=== PATIENT | male | born 1970 | race Caucasian/White ===

== ENCOUNTER 2020-09-05 04:42 | Observation (INO) | payer MEDICARE, OTHER ==
--- NOTE | 2020-09-05 05:13 | XR ---
EXAM: XR Chest, 1 View CLINICAL HISTORY: ITS.REASON XR Reason: dysrhythmia TECHNIQUE: Frontal view of the chest. COMPARISON: No relevant prior studies available. FINDINGS: Lungs: No consolidation or mass. Pleural space: No acute findings Heart: Mild cardiomegaly. Pacer device in place. Bones/joints: No acute findings. IMPRESSION: No acute cardiopulmonary process.
--- NOTE | 2020-09-05 05:17 | ED ---
Chest Pain HPI - General Stated Complaint: Cardiac issue Time Seen by Provider: 09/05/20 04:51 Source: patient Mode of arrival: EMS Limitations: no limitations - History of Present Illness Initial Comments: This patient is a 49-year-old man who presents with complaint that he believes his defibrillator has discharged twice tonight. He states that about 1 AM he was awakened from sleep by sharp pain that lasted just a second. He thought that his defibrillator may have fired. He was not having any other symptoms so he tried to go back to sleep. Patient was again awakened with that sensation a little after 4 AM. The patient denies other symptoms. He is not having any chest pain currently. No palpitations, dyspnea, diaphoresis, nausea or vomiting. MD Complaint: chest pain Onset/Timin -: hour(s) Onset: during rest, awoke with symptoms Pain Location: substernal Pain Radiation: none Severity: moderate Quality: sharp Consistency: now resolved Improves With: nothing Worsens With: nothing Treatments Prior to Arrival: none - Related Data Home Medications Medication Instructions Recorded Confirmed Aspirin EC [Ecotrin Low Dose] 81 mg PO DAILY 09/05/20 09/05/20 Atorvastatin [Lipitor] 40 mg PO DAILY 09/05/20 09/05/20 Carvedilol [Coreg] 12.5 mg PO BID 09/05/20 09/05/20 Folic Acid-Vit B Complex-Vit C 1 mg PO DAILY 09/05/20 09/05/20 [Nephrocaps] Furosemide [Lasix] 40 mg PO DAILY PRN 09/05/20 09/05/20 Losartan Potassium 50 mg PO DAILY 09/05/20 09/05/20 Magnesium Chloride [Slow Mag] 128 mg PO BID 09/05/20 09/05/20 Melatonin 3 mg PO HS 09/05/20 09/05/20 Mycophenolate Sodium [Mycophenolic 720 mg PO BID 09/05/20 09/05/20 Acid] Sirolimus [Rapamune] 1 mg PO DAILY 09/05/20 09/05/20 Sirolimus [Rapamune] 1.5 mg PO DAILY 09/05/20 09/05/20 Warfarin [Coumadin] 5 mg PO SUMOTUWETHSA 09/05/20 09/05/20 Warfarin [Coumadin] 7.5 mg PO FR 09/05/20 09/05/20 amLODIPine [Norvasc] 5 mg PO DAILY 09/05/20 09/05/20 oxyCODONE HCL [OxyIR] 5 mg PO Q6H PRN 09/05/20 09/05/20 valACYclovir HCL [Valtrex] 1,000 mg PO DAILY 09/05/20 09/05/20 Allergies Allergy/AdvReac Type Severity Reaction Status Date / Time bee venom protein (honey bee) Allergy Swelling Verified 09/05/20 06:33 cephalexin [From Keflex] Allergy Unknown Verified 09/05/20 06:33 Childhood lisinopril Allergy Swelling Verified 09/05/20 06:33 tacrolimus [From Prograf] Allergy Unknown Verified 09/05/20 06:33 Review of Systems ROS Statement: Those systems with pertinent positive or pertinent negative responses have been documented in the HPI. ROS Other: All systems not noted in ROS Statement are negative. Constitutional: Denies: fever, chills Respiratory: Denies: cough, dyspnea Cardiovascular: Reports: as per HPI, chest pain. Denies: palpitations, orthopnea, edema, syncope Gastrointestinal: Denies: abdominal pain, nausea, vomiting, diarrhea, constipation Genitourinary: Denies: dysuria, hematuria Musculoskeletal: Denies: back pain Skin: Denies: rash Neurological: Denies: headache, weakness, numbness EKG Findings - EKG Comments: EKG Findings:: 12-lead ECG shows what appears to be an atrial sensed ventricular paced rhythm. There are PVCs present. - EKG Results: EKG: interpreted by ERMD, normal axis General Exam General appearance: alert, in no apparent distress Head exam: Present: atraumatic, normocephalic Eye exam: Present: normal appearance. Absent: scleral icterus, conjunctival injection ENT exam: Present: normal oropharynx Neck exam: Present: normal inspection, full ROM Respiratory exam: Present: normal lung sounds bilaterally. Absent: respiratory distress, wheezes, rales, rhonchi, stridor Cardiovascular Exam: Present: regular rate, normal rhythm, normal heart sounds. Absent: systolic murmur, diastolic murmur, rubs GI/Abdominal exam: Present: soft. Absent: distended, tenderness, guarding, rebound, rigid, mass Extremities exam: Present: normal inspection, normal capillary refill. Absent: pedal edema, calf tenderness Back exam: Present: normal inspection. Absent: CVA tenderness (R), CVA tenderness (L) Neurological exam: Present: alert Skin exam: Present: warm, dry, intact, normal color. Absent: rash Course Vital Signs 09/05/20 09/05/20 04:51 06:12 Temperature 98 F Pulse Rate 73 69 Respiratory 16 16 Rate Blood Pressure 140/107 131/104 O2 Sat by Pulse 99 98 Oximetry Chest Pain MDM - MDM Pacer interrogation reveals that the patient did have 2 episodes of ventricular tachycardia, resulting in defibrillation. As these occurred during sleep, there may be possible element of sleep apnea. Patient admitted to have cardiology consultation. Disposition Clinical Impression: Defibrillator discharge Disposition: ADMITTED IP TO THIS HOSP Condition: Fair
[2020-09-05 05:22] LABS: Anisocytosis Slight; Basophils # (A) 0.1 k/uL (0-0.2); Basophils % (A) 1 %; Eosinophils # (A) 0.1 k/uL (0-0.7); Eosinophils % (A) 2 %; HCT 37.1 % (39.0-53.0); HGB 12.6 gm/dL (13.0-17.5); Lymphocytes # (A) 0.8 k/uL (1.0-4.8); Lymphocytes % (A) 16 %; MCH 28.8 pg (25.0-35.0); MCV 84.6 fL (80.0-100.0); Mean Platelet Volume 7.3; Monocytes # (A) 0.2 k/uL (0-1.0); Monocytes % (A) 4 %; Neutrophils # (A) 3.9 k/uL (1.3-7.7); Neutrophils % (A) 76 %; Platelet Count 189 k/uL (150-450); RBC 4.38 m/uL (4.30-5.90); RDW 16.2 % (11.5-15.5); WBC 5.1 k/uL (3.8-10.6)
[2020-09-05 05:30] LABS: INR 2.3 (<1.2); Partial Thromboplastin Time 29.1 sec (22.0-30.0); Prothrombin Time 22.8 sec (9.0-12.0)
[2020-09-05 05:40] LABS: African American GFR (CKD) 71 (>60 ml/min/1.73 sqM); Albumin 3.1 g/dL (3.5-5.0); Anion Gap 3 mmol/L; Calcium 8.1 mg/dL (8.4-10.2); Carbon Dioxide 23 mmol/L (22-30); Chloride 111 mmol/L (98-107); Glucose 109 mg/dL (74-99); Non-African American GFR(CKD) 62 (>60 ml/min/1.73 sqM); Sodium 137 mmol/L (137-145); Total Bilirubin 0.8 mg/dL (0.2-1.3); Total Protein 5.5 g/dL (6.3-8.2)
[2020-09-05 05:42] LABS: ALT 14 U/L (4-49); AST 23 U/L (17-59); Alkaline Phosphatase <20 U/L (38-126); Blood Urea Nitrogen 12 mg/dL (9-20); Magnesium 2.1 mg/dL (1.6-2.3); Potassium 4.2 mmol/L (3.5-5.1)
[2020-09-05] MEDS ORDERED: NITROGLYCERIN SL TABS 0.4 MG TAB SUBLINGUAL PRN (06:16)
[2020-09-05] MEDS ORDERED: carvediloL 12.5 MG TAB PO SCH (09:00)
[2020-09-05] MEDS: carvediloL 12.5 MG TAB PO SCH ×2 (09:29→20:37)
[2020-09-05] MEDS: LOSARTAN 50 MG TAB PO SCH (09:30)
[2020-09-05] MEDS ORDERED: FUROSEMIDE 40 MG TAB PO PRN (10:37)
--- NOTE | 2020-09-05 11:24 | P.CRDCN ---
History of Present Illness History of present illness: HISTORY OF PRESENTING ILLNESS This is a pleasant 49-year-old male past medical history significant for chronic kidney disease s/p renal transplant 2010, hypertension, non-ischemic dilated cardiomyopathy s/p AICD, LV thrombus on warfarin, history of ventricular fibrillation in the past, DVT, right ZIGZAG APPLIQUER ischemic stroke and dyslipidemia. He follows in the office with Dr. Zepeda in [place] and Dr. Davenport in [place] for advanced heart failure treatment. We have been asked to see in consultation for AICD discharge. He is seen and examined resting comfortably on the bed in no acu te distress. He states just last week he had an upgrade of his ICD with Dr. Beard in [place]. Last night he was sleeping and was awoken by his device firing. It occurred again shortly after approximately 20 minutes. He denies feeling any chest pains, shortness of breath, dizziness or palpitations ye sterday throughout the day or this morning. He underwent catheterization and echocardiogram 06/2020. Cath report reviewed revealing normal coronary arteries with EF 10-15%. Device interrogation report not here however [facility] did call and notify the nurse that he received 2 shocks last night secondary to VT. The patient was also called this morning by his device clinic. DIAGNOSTICS EKG reveals atrial sensed paced rhythm with PVC's. Telemetry tracings indicate frequent PVC's and couplets. Chest xray negative for an acute cardiopulmonary process. Laboratory reviewed, WBC 5.1, hemoglobin 12.6, platelets 189, INR 2.3, sodium 137, potassium 4.2, creatinine 1.36, magnesium 2.1, troponin 0.030. Current cardiac medications include aspirin 81 mg daily, atorvastatin 40 mg daily, carvedilol 12.5 mg twice a day, Lasix 40 mg daily as needed for lower extremity edema, losartan 50 mg daily, amlodipine 5 mg daily and Coumadin. REVIEW OF SYSTEMS At the time of my exam: CONSTITUTIONAL: Denies fever or chills. CARDIOVASCULAR: Denies chest pain, shortness of breath, orthopnea, PND or palpi tations. RESPIRATORY: Denies cough. GASTROINTESTINAL: Denies abdominal pain, diarrhea, constipation, nausea or vomiting. MUSCULOSKELETAL: Denies myalgias. NEUROLOGIC: Denies numbness, tingling, headacbe or weakness. ENDOCRINE: Denies fatigue, weight change, polydipsia or polyurina. GENITOURINARY: Denies burning, hematuria or urgency with micturation. HEMATOLOGIC: Denies history of anemia or bleeding. PHYSICAL EXAMINATION Blood pressure 142/101 heart rate 68 afebrile and maintaining oxygen saturation on room air. CONSTITUTIONAL: No apparent distress. HEENT: Head is normocephalic. Pupils are equal, round. Sclerae anicteric. Mucous membranes of the mouth are moist. No JVD. No carotid bruit. CHEST EXAMINATION: Lungs are clear to auscultation. No chest wall tenderness is noted on palpation or with deep breathing. ICD insertion site with dressings in place, no drainage noted. HEART EXAMINATION: Regular rate and rhythm. S1, S2 heard. No murmurs, gallops or rub. ABDOMEN: Soft, nontender. Positive bowel sounds. EXTREMITIES: 2+ peripheral pulses, right lower extremity 1+ pitting edema, no swelling on the left and no calf tenderness. NEUROLOGIC EXAMINATION: Patient is awake, alert and oriented x3. ASSESSMENT AICD discharge Dilated non-ischemic cardiomyopathy s/p AICD Chronic kidney disease s/p transplantation Hypertension Dyslipidemia PLAN Increase coreg to 25 mg BID. Request records from his primary java manager for review. Check TSH. Await report from [facility] for review of telemetry tracings surrounding the event. Further recommendations to follow based on clinical course. Thank you kindly for this consultation. Nurse Practitioner note has been reviewed, I agree with a documented findings and plan of care. Patient was seen and examined. Past Medical History Past Medical History: CVA/TIA, Hypertension, Renal Disease History of Any Multi-Drug Resistant Organisms: None Reported Past Surgical History: AICD Additional Past Surgical History / Comment(s): renal transplant Smoking Status: Unknown if ever smoked Past Alcohol Use History: None Reported Medications and Allergies Home Medications Medication Instructions Recorded Confirmed Type Aspirin EC [Ecotrin Low Dose] 81 mg PO DAILY 09/05/20 09/05/20 History Atorvastatin [Lipitor] 40 mg PO DAILY 09/05/20 09/05/20 History Carvedilol [Coreg] 12.5 mg PO BID 09/05/20 09/05/20 History Folic Acid-Vit B Complex-Vit C 1 mg PO DAILY 09/05/20 09/05/20 History [Nephrocaps] Furosemide [Lasix] 40 mg PO DAILY PRN 09/05/20 09/05/20 History Losartan Potassium 50 mg PO DAILY 09/05/20 09/05/20 History Magnesium Chloride [Slow Mag] 128 mg PO BID 09/05/20 09/05/20 History Melatonin 3 mg PO HS 09/05/20 09/05/20 History Mycophenolate Sodium [Mycophenolic 720 mg PO BID 09/05/20 09/05/20 History Acid] Sirolimus [Rapamune] 1 mg PO DAILY 09/05/20 09/05/20 History Sirolimus [Rapamune] 1.5 mg PO DAILY 09/05/20 09/05/20 History Warfarin [Coumadin] 5 mg PO SUMOTUWETHSA 09/05/20 09/05/20 History Warfarin [Coumadin] 7.5 mg PO FR 09/05/20 09/05/20 History amLODIPine [Norvasc] 5 mg PO DAILY 09/05/20 09/05/20 History oxyCODONE HCL [OxyIR] 5 mg PO Q6H PRN 09/05/20 09/05/20 History valACYclovir HCL [Valtrex] 1,000 mg PO DAILY 09/05/20 09/05/20 History Allergies Allergy/AdvReac Type Severity Reaction Status Date / Time bee venom protein (honey bee) Allergy Swelling Verified 09/05/20 06:33 cephalexin [From Keflex] Allergy Unknown Verified 09/05/20 06:33 Childhood lisinopril Allergy Swelling Verified 09/05/20 06:33 tacrolimus [From Prograf] Allergy Unknown Verified 09/05/20 06:33 Physical Exam Vitals: Vital Signs Temp Pulse Resp BP Pulse Ox 09/05/20 08:02 67 18 135/98 97 09/05/20 06:12 69 16 131/104 98 09/05/20 04:51 98 F 73 16 140/107 99 Intake and Output 09/04/20 09/05/20 09/05/20 22:59 06:59 14:59 Other: Weight 79.379 kg Results 09/05/20 05:17 09/05/20 05:17 Cardiac Enzymes 09/05/20 09/05/20 Range/Units 05:17 05:17 AST 23 (17-59) U/L Troponin I 0.030 (0.000-0.034) ng/mL Coagulation 09/05/20 Range/Units 05:17 PT 22.8 H (9.0-12.0) sec APTT 29.1 (22.0-30.0) sec CBC 09/05/20 Range/Units 05:17 WBC 5.1 (3.8-10.6) k/uL RBC 4.38 (4.30-5.90) m/uL Hgb 12.6 L (13.0-17.5) gm/dL Hct 37.1 L (39.0-53.0) % Plt Count 189 (150-450) k/uL Comprehensive Metabolic Panel 09/05/20 Range/Units 05:17 Sodium 137 (137-145) mmol/L Potassium 4.2 (3.5-5.1) mmol/L Chloride 111 H (98-107) mmol/L Carbon Dioxide 23 (22-30) mmol/L BUN 12 (9-20) mg/dL Creatinine 1.36 H (0.66-1.25) mg/dL Glucose 109 H (74-99) mg/dL Calcium 8.1 L (8.4-10.2) mg/dL AST 23 (17-59) U/L ALT 14 (4-49) U/L Alkaline Phosphatase <20 L (38-126) U/L Total Protein 5.5 L (6.3-8.2) g/dL Albumin 3.1 L (3.5-5.0) g/dL Current Medications Generic Name Dose Route Start Last Admin Trade Name Freq PRN Reason Stop Dose Admin Aspirin 325 mg 09/06/20 09:00 Aspirin 325 Mg Tab PO DAILY EDWARD Nitroglycerin 0.4 mg 09/05/20 06:16 Nitroglycerin Sl Tabs 0.4 Mg Tab SUBLINGUAL Q5M PRN Chest Pain Sodium Chloride 10 ml 09/05/20 09:00 Sodium Chloride 0.9% Flush 10 Ml Syringe IV BID EDWARD Intake and Output 09/04/20 09/05/20 09/05/20 22:59 06:59 14:59 Other: Weight 79.379 kg 09/05/20 05:17 09/05/20 05:17
--- NOTE | 2020-09-05 14:36 | P.HPIM ---
History of Present Illness 49-year-old male came in because of his firing of AICD. Patient had history of atrial fibrillation. Patient was evaluated by cardiology but that when I valid the patient patient was a bit belligerent and the wanted to be transferred to [place] to his doctor although patient will not require higher level of care same thing was informed to the patient. Patient does have history of recurring transplant and is on immunosuppressive therapy for that tacrolimus can cause hypomagnesemia because of which I'll obtain a magnesium level. 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 Review of Systems Rest of the review of systems is negative except those mentioned in HPI Past Medical History Past Medical History: CVA/TIA, Hypertension, Renal Disease History of Any Multi-Drug Resistant Organisms: None Reported Past Surgical History: AICD Additional Past Surgical History / Comment(s): renal transplant Smoking Status: Unknown if ever smoked Past Alcohol Use History: None Reported Medications and Allergies Home Medications Medication Instructions Recorded Confirmed Type Aspirin EC [Ecotrin Low Dose] 81 mg PO DAILY 09/05/20 09/05/20 History Atorvastatin [Lipitor] 40 mg PO DAILY 09/05/20 09/05/20 History Carvedilol [Coreg] 12.5 mg PO BID 09/05/20 09/05/20 History Folic Acid-Vit B Complex-Vit C 1 mg PO DAILY 09/05/20 09/05/20 History [Nephrocaps] Furosemide [Lasix] 40 mg PO DAILY PRN 09/05/20 09/05/20 History Losartan Potassium 50 mg PO DAILY 09/05/20 09/05/20 History Magnesium Chloride [Slow Mag] 128 mg PO BID 09/05/20 09/05/20 History Melatonin 3 mg PO HS 09/05/20 09/05/20 History Mycophenolate Sodium [Mycophenolic 720 mg PO BID 09/05/20 09/05/20 History Acid] Sirolimus [Rapamune] 1 mg PO DAILY 09/05/20 09/05/20 History Sirolimus [Rapamune] 1.5 mg PO DAILY 09/05/20 09/05/20 History Warfarin [Coumadin] 5 mg PO SUMOTUWETHSA 09/05/20 09/05/20 History Warfarin [Coumadin] 7.5 mg PO FR 09/05/20 09/05/20 History amLODIPine [Norvasc] 5 mg PO DAILY 09/05/20 09/05/20 History oxyCODONE HCL [OxyIR] 5 mg PO Q6H PRN 09/05/20 09/05/20 History valACYclovir HCL [Valtrex] 1,000 mg PO DAILY 09/05/20 09/05/20 History Allergies Allergy/AdvReac Type Severity Reaction Status Date / Time bee venom protein (honey bee) Allergy Swelling Verified 09/05/20 06:33 cephalexin [From Keflex] Allergy Unknown Verified 09/05/20 06:33 Childhood lisinopril Allergy Swelling Verified 09/05/20 06:33 tacrolimus [From Prograf] Allergy Unknown Verified 09/05/20 06:33 Physical Exam Vitals: Vital Signs Temp Pulse Pulse Resp BP BP Pulse Ox 09/05/20 09:00 97.9 F 68 18 142/101 97 09/05/20 08:02 67 18 135/98 97 09/05/20 06:12 69 16 131/104 98 09/05/20 04:51 98 F 73 16 140/107 99 Intake and Output 09/04/20 09/05/20 09/05/20 22:59 06:59 14:59 Intake Total 240 Balance 240 Intake: Oral 240 Other: Weight 79.379 kg Patient was belligerent and non cooperative for exam. Results CBC & Chem 7: 09/05/20 05:17 09/05/20 05:17 Labs: Abnormal Lab Results - Last 24 Hours (Table) 09/05/20 09/05/20 09/05/20 Range/Units 05:17 05:17 05:17 Hgb 12.6 L (13.0-17.5) gm/dL Hct 37.1 L (39.0-53.0) % RDW 16.2 H (11.5-15.5) % Lymphocytes # 0.8 L (1.0-4.8) k/uL PT 22.8 H (9.0-12.0) sec INR 2.3 H (<1.2) Chloride 111 H (98-107) mmol/L Creatinine 1.36 H (0.66-1.25) mg/dL Glucose 109 H (74-99) mg/dL Calcium 8.1 L (8.4-10.2) mg/dL Alkaline Phosphatase <20 L (38-126) U/L Total Protein 5.5 L (6.3-8.2) g/dL Albumin 3.1 L (3.5-5.0) g/dL Assessment and Plan Plan: -Discharge from AICD possibility of an episode of atrial fibrillation: Patient will be started on amiodarone device will be interrogated. Considering the patient being on tach.Magnesium level will be obtained. Coreg dose is being increased to 12.5 twice a day. Continue with anticoagulation with Coumadin INR is therapeutic TSH is being obtained -Dilated nonischemic cardiomyopathy with EF of around 10-15% patient will be resumed on home regimen of the Lasix which is as needed and losartan. --Hypertension -Hyperlipidemia -Status post renal transplant: Patient will be started back on immunosuppressive therapy. Patient is also on prophylactic antivirals which will be continued. Patient was and creatinine is 1.36 I do not have his baseline creatinine available. -History of LV thrombus for which patient is on Coumadin which will be continued
[2020-09-05] MEDS: AMIODARONE 200 MG TAB PO SCH ×2 (14:56→20:37)
[2020-09-05] MEDS: ATORVASTATIN 40 MG TAB PO SCH (14:56)
[2020-09-05] MEDS ORDERED: WARFARIN 7.5 MG TAB PO SCH (18:00)
[2020-09-05] MEDS: valACYclovir HCL 1,000 MG TABLET PO SCH (18:22)
[2020-09-05] MEDS: SIROLIMUS 0.5 MG PO SCH (18:23)
[2020-09-05] MEDS: MYCOPHENOLATE SODIUM DR 180 MG TABLET.DR PO SCH (20:37)
[2020-09-05] MEDS: MAGNESIUM OXIDE 400 MG TAB PO SCH (20:37)
[2020-09-05] MEDS ORDERED: MELATONIN 3 MG TABLET PO SCH (21:00)
[2020-09-06 07:52] LABS: INR 2.6 (<1.2); Prothrombin Time 25.1 sec (9.0-12.0)
[2020-09-06] MEDS: AMIODARONE 200 MG TAB PO SCH (08:12)
[2020-09-06] MEDS: MAGNESIUM OXIDE 400 MG TAB PO SCH (08:12)
[2020-09-06] MEDS: LOSARTAN 50 MG TAB PO SCH (08:12)
[2020-09-06] MEDS: carvediloL 12.5 MG TAB PO SCH (08:12)
[2020-09-06] MEDS: ATORVASTATIN 40 MG TAB PO SCH (08:12)
[2020-09-06] MEDS: MYCOPHENOLATE SODIUM DR 180 MG TABLET.DR PO SCH (08:13)
[2020-09-06] MEDS: valACYclovir HCL 1,000 MG TABLET PO SCH (08:14)
[2020-09-06] MEDS: SIROLIMUS 0.5 MG PO SCH (08:15)
[2020-09-06 08:49] LABS: Calcium 8.7 mg/dL (8.4-10.2); Potassium 4.4 mmol/L (3.5-5.1)
[2020-09-06] MEDS ORDERED: SIROLIMUS 1 MG PO SCH (09:00)
[2020-09-06] MEDS ORDERED: ASPIRIN 325 MG TAB PO SCH (09:00)
[2020-09-06] MEDS ORDERED: ASPIRIN 81 MG PO SCH (09:00)
[2020-09-06] MEDS ORDERED: amLODIPine 5 MG TAB PO SCH (09:00)
[2020-09-06 09:11] VITALS: RESP 20
--- NOTE | 2020-09-06 09:59 | P.DS ---
Providers Date of admission: 09/05/20 06:20 Attending physician: Tasha Cobos Consults: 09/05/20 06:16 Consult Physician Routine Consulting Provider: Emanuel Bueno Consult Reason/Comments: AICD discharged Do you want consulting provider notified?: Yes Primary care physician: Physician Nonstaff Hospital Course: 49-year-old male came in because of his firing of AICD. Patient had history of atrial fibrillation. Patient was evaluated by cardiology but that when I valid the patient patient was a bit belligerent and the wanted to be transferred to [place] to his doctor although patient will not require higher level of care same thing was informed to the patient. Patient does have history of recurring transplant and is on immunosuppressive therapy for that tacrolimus can cause hypomagnesemia because of which I'll obtain a magnesium level. 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 09/06/2020 Patient the device wasn't targeted please refer to cardiology documentation for further details. The patient has mildly elevated creatinine probably because of hypotension amlodipine will be discontinued patient is a beta ronni dose was increased by cardiology. Patient was started on amiodarone, amiodarone doesn't tract with Coumadin because of which I'm cutting down the Coumadin to 5 mg daily. Patient usually takes Coumadin 5 mg daily along with some 0.5 mg 1 daily week. Patient need close follow-up as an outpatient to check the basic metabolic profile and INR patient has a follow-up on Tuesday with the his physicians. Cardiology advised him to have a sleep study as an outpatient PHYSICAL EXAMINATION: GENERAL: The patient is alert and oriented x3, not in any acute distress. Well developed, well nourished. HEENT: Pupils are round and equally reacting to light. EOMI. No scleral icterus. No conjunctival pallor. Normocephalic, atraumatic. No pharyngeal erythema. No thyromegaly. CARDIOVASCULAR: S1 and S2 present. No murmurs, rubs, or gallops. PULMONARY: Chest is clear to auscultation, no wheezing or crackles. ABDOMEN: Soft, nontender, nondistended, normoactive bowel sounds. No palpable organomegaly. MUSCULOSKELETAL: No joint swelling or deformity. EXTREMITIES: No cyanosis, clubbing, or pedal edema. Leg is swollen which is chronic probably secondary to lymphedema NEUROLOGICAL: Gross neurological examination did not reveal any focal deficits. SKIN: No rashes. Assessment and Plan Plan: -Discharge from [facility] possibility of an episode of atrial fibrillation: Patient will be started on amiodarone device wasn't rotated -Dilated nonischemic cardiomyopathy with EF of around 10-15% patient will be resumed on home regimen of the Lasix which is as needed and losartan. --Hypertension -Hyperlipidemia -Status post renal transplant: Patient will be started back on immunosuppressive therapy. Patient is also on prophylactic antivirals which will be continued. Patient was and creatinine is 1.36 I do not have his baseline creatinine available. -History of LV thrombus for which patient is on Coumadin which will be continued Patient Condition at Discharge: Fair Plan - Discharge Summary Discharge Rx Participant: Yes New Discharge Prescriptions: New carvediloL [Coreg*] 25 mg PO BID #60 tab Continue Magnesium Chloride [Slow-Mag] 128 mg PO BID Aspirin EC [Ecotrin Low Dose] 81 mg PO DAILY Mycophenolate Sodium [Mycophenolic Acid] 720 mg PO BID Melatonin 3 mg PO HS Folic Acid-Vit B Complex-Vit C [Nephrocaps] 1 mg PO DAILY Sirolimus [Rapamune] 1.5 mg PO DAILY Sirolimus [Rapamune] 1 mg PO DAILY valACYclovir HCL [Valtrex] 1,000 mg PO DAILY oxyCODONE HCL [OxyIR] 5 mg PO Q6H PRN PRN Reason: Pain Losartan Potassium 50 mg PO DAILY Furosemide [Lasix] 40 mg PO DAILY PRN PRN Reason: Edema Atorvastatin [Lipitor] 40 mg PO DAILY Changed Warfarin [Coumadin] 5 mg PO DAILY #0 Discontinued Warfarin [Coumadin] 7.5 mg PO FR amLODIPine [Norvasc] 5 mg PO DAILY Carvedilol [Coreg] 12.5 mg PO BID Discharge Medication List Aspirin EC [Ecotrin Low Dose] 81 mg PO DAILY 09/05/20 [History] Atorvastatin [Lipitor] 40 mg PO DAILY 09/05/20 [History] Folic Acid-Vit B Complex-Vit C [Nephrocaps] 1 mg PO DAILY 09/05/20 [History] Furosemide [Lasix] 40 mg PO DAILY PRN 09/05/20 [History] Losartan Potassium 50 mg PO DAILY 09/05/20 [History] Magnesium Chloride [Slow-Mag] 128 mg PO BID 09/05/20 [History] Melatonin 3 mg PO HS 09/05/20 [History] Mycophenolate Sodium [Mycophenolic Acid] 720 mg PO BID 09/05/20 [History] Sirolimus [Rapamune] 1 mg PO DAILY 09/05/20 [History] Sirolimus [Rapamune] 1.5 mg PO DAILY 09/05/20 [History] oxyCODONE HCL [OxyIR] 5 mg PO Q6H PRN 09/05/20 [History] valACYclovir HCL [Valtrex] 1,000 mg PO DAILY 09/05/20 [History] Warfarin [Coumadin] 5 mg PO DAILY #0 09/06/20 [Rx] carvediloL [Coreg*] 25 mg PO BID #60 tab 09/06/20 [Rx] Follow up Appointment(s)/Referral(s): Nonstaff,Physician [Primary Care Provider] - 1-2 days
[2020-09-06 11:46] VITALS: BP 132/83; PULSE 60; TEMP 97.5
--- NOTE | 2020-09-06 14:00 | P.PN ---
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 He follows in the office with Dr. Zepeda in [place] and Dr. Davenport in [place] for advanced heart failure treatment. We have been asked to see in consultation for AICD discharge. He is seen and examined resting comfortably on the bed in no acute distress. He states just last week he had an upgrade of his ICD with Dr. Beard in [place]. Last night he was sleeping and was awoken by his device firing. It occurred again shortly after approximately 20 minutes. He denies feeling any chest pains, shortness of breath, dizziness or palpitations yesterday throughout the day or this morning. He underwent catheterization and echocardiogram 06/2020. Cath report reviewed revealing normal coronary arteries with EF 10-15%. Device interrogation report not here however [employer] did call and notify the nurse that he received 2 shocks last night secondary to VT. The patient was also called this morning by his device clinic. 09/06/2019 [employer] device interrogation revealed he had 4 episodes of ventricular tachycardia to requiring therapy. 2 auto corrected. He has been initiated on amiodarone. He had one short run of ventricular tachycardia on the previous 12 hours of 7 beats. He has no symptoms of chest pain, shortness of breath, dizziness or palpitations. Blood pressure 132/83 heart rate 60 afebrile maintaining oxygen saturation on room air. Laboratory data reviewed, INR 2.6, sodium 138, potassium 4.4, creatinine 1.63. PHYSICAL EXAMINATION CONSTITUTIONAL: No apparent distress. HEENT: Head is normocephalic. Pupils are equal, round. Sclerae anicteric. Mucous membranes of the mouth are moist. No JVD. No carotid bruit. CHEST EXAMINATION: Lungs are clear to auscultation. No chest wall tenderness is noted on palpation or with deep breathing. ICD insertion site with dressings in place, no drainage noted. HEART EXAMINATION: Regular rate and rhythm. S1, S2 heard. No murmurs, gallops or rub. EXTREMITIES: 2+ peripheral pulses, right lower extremity 1+ pitting edema, no swelling on the left and no calf tenderness. ASSESSMENT AICD discharge Dilated non-ischemic cardiomyopathy s/p AICD Chronic kidney disease s/p transplantation Hypertension Dyslipidemia PLAN Stable on current medical regimen. Discussed with the patient amiodarone titration. He is scheduled to see his primary fish fryer in the office next week. Nurse Practitioner note has been reviewed, I agree with a documented findings and plan of care. Patient was seen and examined. Objective - Vital Signs Vital signs: Vital Signs Temp 97.5 F L 09/06/20 11:46 Pulse 60 09/06/20 11:46 Resp 20 09/06/20 11:46 BP 132/83 09/06/20 11:46 Pulse Ox 97 09/06/20 11:46 Intake & Output 09/05/20 09/06/20 09/06/20 18:59 06:59 18:59 Intake Total 480 240 Output Total 750 Balance -270 240 Weight 79.379 kg 96.3 kg Intake: Oral 480 240 Output: Urine 750 Other: Voiding Method Urinal Urinal # Voids 1 2 - Labs CBC & Chem 7: 09/05/20 05:17 09/06/20 07:08 Labs: Abnormal Lab Results - Last 24 Hours (Table) 09/06/20 09/06/20 Range/Units 07:08 07:08 PT 25.1 H (9.0-12.0) sec INR 2.6 H (<1.2) Chloride 111 H (98-107) mmol/L Carbon Dioxide 21 L (22-30) mmol/L Creatinine 1.63 H (0.66-1.25) mg/dL Glucose 120 H (74-99) mg/dL
[2020-09-06] MEDS ORDERED: WARFARIN 5 MG TAB PO SCH (18:00)
== END 2020-09-06 12:26 | disposition home or self-care (01) ==
LOC: EC 04:42 → 1SOBS 06:20 → 3SCARD 13:45
PROVIDERS: ADMIT Internal Medicine; ATTEND Internal Medicine
DX: I47.2 Ventricular tachycardia (principal); I49.3 Ventricular premature depolarization; Z95.810 Presence of automatic (implantable) cardiac defibrillator; I42.0 Dilated cardiomyopathy; I42.8 Other cardiomyopathies; I48.91 Unspecified atrial fibrillation; I13.0 Hypertensive heart and chronic kidney disease with heart failure and stage 1 through stage 4 chronic kidney disease, or unspecified chronic kidney disease; N18.9 Chronic kidney disease, unspecified; I50.9 Heart failure, unspecified; Z94.0 Kidney transplant status; E78.5 Hyperlipidemia, unspecified; Z86.73 Personal history of transient ischemic attack (TIA), and cerebral infarction without residual deficits; I10 Essential (primary) hypertension; Z86.718 Personal history of other venous thrombosis and embolism; Z79.82 Long term (current) use of aspirin; Z79.01 Long term (current) use of anticoagulants; Z79.899 Other long term (current) drug therapy; Z88.8 Allergy status to other drugs, medicaments and biological substances; Z88.1 Allergy status to other antibiotic agents; Z91.030 Bee allergy status
CPT/HCPCS: 93005 ×2; 99285; 36415; 80053; 80048; 84443; 83735; 84484; 85025; 85610 ×2; 85730; 71045; G0378 ×3; J7518

== ENCOUNTER 2020-12-07 13:46 | Emergency (ER) | payer MEDICARE, OTHER ==
[2020-12-07 14:03] VITALS: RESP 18; TEMP 97.7
[2020-12-07 14:37] LABS: Basophils % (A) 0 %; Eosinophils # (A) 0.1 k/uL (0-0.7); Eosinophils % (A) 1 %; HCT 37.2 % (39.0-53.0); HGB 12.7 gm/dL (13.0-17.5); Lymphocytes # (A) 0.7 k/uL (1.0-4.8); Lymphocytes % (A) 14 %; MCH 30.9 pg (25.0-35.0); MCHC 34.1 g/dL (31.0-37.0); MCV 90.7 fL (80.0-100.0); Mean Platelet Volume 7.3; Monocytes # (A) 0.4 k/uL (0-1.0); Monocytes % (A) 9 %; Neutrophils # (A) 3.6 k/uL (1.3-7.7); Neutrophils % (A) 73 %; Platelet Count 194 k/uL (150-450); RDW 15.8 % (11.5-15.5); WBC 4.9 k/uL (3.8-10.6)
[2020-12-07 14:50] LABS: Albumin 3.4 g/dL (3.5-5.0); Calcium 8.6 mg/dL (8.4-10.2); INR 2.8 (<1.2); Potassium 4.1 mmol/L (3.5-5.1); Prothrombin Time 26.9 sec (9.0-12.0); Total Bilirubin 0.7 mg/dL (0.2-1.3); Total Protein 5.6 g/dL (6.3-8.2)
--- NOTE | 2020-12-07 14:57 | ED ---
Extremity Problem HPI - General Source: patient Mode of arrival: ambulatory Limitations: no limitations <Avel Eubanks - Last Filed: 12/07/20 17:46> <Ivelisse Vásquez - Last Filed: 12/07/20 18:42> - General Chief complaint: Extremity Problem,Nontraumatic Stated complaint: L Arm Swelling,Hx Blood Clots Time Seen by Provider: 12/07/20 14:06 - History of Present Illness Initial comments: 50-year-old male with history of DVT presenting to the emergency department the chief complaint of left arm swelling. Patient reports is currently taking Coumadin due to history of coagulopathy. Patient reports she has noticed swelling in his left arm since this morning. Reports most of the swelling is located in the proximal forearm. He does report some tenderness to the touch but denies any overlying cellulitic skin changes, ecchymosis or injuries to the region. He denies any chest pain or shortness of breath. He also reports right lower extremity edema at baseline for the past 2 years. States he's had mul tiple Doppler ultrasound of the right lower extremity with no acute findings. Patient states he had a kidney transplant in 2010. He sees a specialist team out of [facility] (Avel Eubanks) - Related Data Home Medications Medication Instructions Recorded Confirmed Aspirin EC [Ecotrin Low Dose] 81 mg PO DAILY 09/05/20 12/07/20 Atorvastatin [Lipitor] 40 mg PO DAILY 09/05/20 12/07/20 Folic Acid-Vit B Complex-Vit C 1 mg PO DAILY 09/05/20 12/07/20 [Nephrocaps] Furosemide [Lasix] 40 mg PO DAILY PRN 09/05/20 12/07/20 Losartan Potassium 50 mg PO DAILY 09/05/20 12/07/20 Magnesium Chloride [Slow-Mag] 128 mg PO BID 09/05/20 12/07/20 Melatonin 3 mg PO HS 09/05/20 12/07/20 Mycophenolate Sodium [Mycophenolic 720 mg PO BID 09/05/20 12/07/20 Acid] Sirolimus [Rapamune] 1 mg PO DAILY 09/05/20 12/07/20 valACYclovir HCL [Valtrex] 1,000 mg PO DAILY 09/05/20 12/07/20 Amiodarone [Cordarone] 200 mg PO DAILY 12/07/20 12/07/20 Spironolactone [Aldactone] 25 mg PO DAILY 12/07/20 12/07/20 Warfarin [Coumadin] 2.5 mg PO SUTUTHSA 12/07/20 12/07/20 Warfarin [Coumadin] 5 mg PO MOWEFR 12/07/20 12/07/20 Previous Rx's Medication Instructions Recorded carvediloL [Coreg*] 25 mg PO BID #60 tab 09/06/20 Allergies Allergy/AdvReac Type Severity Reaction Status Date / Time bee venom protein (honey bee) Allergy Swelling Verified 12/07/20 15:57 cephalexin [From Keflex] Allergy Unknown Verified 12/07/20 15:57 Childhood lisinopril Allergy Swelling Verified 12/07/20 15:57 tacrolimus [From Prograf] Allergy Unknown Verified 12/07/20 15:57 Review of Systems ROS Other: All systems not noted in ROS Statement are negative. <Avel Eubanks - Last Filed: 12/07/20 17:46> ROS Other: All systems not noted in ROS Statement are negative. <Ivelisse Vásquez - Last Filed: 12/07/20 18:42> ROS Statement: Those systems with pertinent positive or pertinent negative responses have been documented in the HPI. Past Medical History Past Medical History: Heart Failure, CVA/TIA, Hypertension, Renal Disease Last Myocardial Infarction Date:: 2017 History of Any Multi-Drug Resistant Organisms: None Reported Past Surgical History: AICD, Heart Catheterization Additional Past Surgical History / Comment(s): renal transplant 2010 [facility] Past Anesthesia/Blood Transfusion Reactions: No Reported Reaction Type of Cardiac Device: AICD Device Placement Date:: 08/25/2020 Past Psychological History: No Psychological Hx Reported Smoking Status: Never smoker Past Alcohol Use History: None Reported Past Drug Use History: None Reported - Past Family History Father History Unknown: Yes Family Medical History: Congestive Heart Failure (CHF) <Avel Eubanks - Last Filed: 12/07/20 17:46> General Exam Limitations: no limitations General appearance: alert, in no apparent distress Head exam: Present: atraumatic, normocephalic, normal inspection Eye exam: Present: normal appearance, PERRL, EOMI Pupils: Present: normal accommodation ENT exam: Present: normal exam, normal oropharynx, mucous membranes moist, TM's normal bilaterally, normal external ear exam Neck exam: Present: normal inspection, full ROM. Absent: tenderness Respiratory exam: Present: normal lung sounds bilaterally. Absent: respiratory distress, wheezes, rales, rhonchi, stridor, chest wall tenderness, accessory muscle use Cardiovascular Exam: Present: regular rate, normal rhythm, normal heart sounds. Absent: systolic murmur, diastolic murmur Extremities exam: Present: full ROM, tenderness (Mild tenderness in the left proximal forearm.), normal capillary refill, other (Probable ulnar radial pulses bilaterally). Absent: pedal edema, joint swelling, calf tenderness Back exam: Present: normal inspection, full ROM. Absent: tenderness, CVA tenderness (R), CVA tenderness (L) Neurological exam: Present: alert, oriented X3, normal gait Psychiatric exam: Present: normal affect, normal mood Skin exam: Present: warm, dry, intact, normal color <Avel Eubanks - Last Filed: 12/07/20 17:46> Course Vital Signs 12/07/20 12/07/20 14:00 18:11 Temperature 97.7 F Pulse Rate 60 68 Respiratory 18 18 Rate Blood Pressure 128/79 125/83 O2 Sat by Pulse 98 99 Oximetry Medical Decision Making - Lab Data Result diagrams: 12/07/20 14:28 12/07/20 14:28 <Avel Eubanks - Last Filed: 12/07/20 17:46> - Lab Data Result diagrams: 12/07/20 14:28 12/07/20 14:28 <Ivelisse Vásquez - Last Filed: 12/07/20 18:42> - Medical Decision Making 50-year-old male presents to emergency Department with a chief complaint of left arm swelling. On physical examination, he has swelling in the left arm mostly in the left proximal forearm. He is otherwise neurovascularly intact. Ultrasou nd showed a nonocclusive from us in the left internal jugular vein. There is also some superficial thrombus in the basilar vein. Subclavian vein also appears to have a nonocclusive thrombus. CBC reveals mild anemia. INR shows 2.8 and patient is currently on Coumadin. CMP reveals an increase in his creatinine at 2.18. Dr. Vásquez spoke with Dr. Sykes who suggested the patient can continue taking the Coumadin and follow-up with his specialist team from [facility]. Strict return parameters were thoroughly discussed the patient is understanding and agreeable. Case discussed with Dr. Vásquez (Avel Eubanks) I personally discussed this case with Dr Sykes vascular surgery - she recommended no admission, no need for heparin, follow up out patient with He matology to discuss changing medications. (Ivelisse Vásquez) - Lab Data Lab Results 12/07/20 12/07/20 12/07/20 Range/Units 14:28 14:28 14:28 WBC 4.9 (3.8-10.6) k/uL RBC 4.10 L (4.30-5.90) m/uL Hgb 12.7 L (13.0-17.5) gm/dL Hct 37.2 L (39.0-53.0) % MCV 90.7 (80.0-100.0) fL MCH 30.9 (25.0-35.0) pg MCHC 34.1 (31.0-37.0) g/dL RDW 15.8 H (11.5-15.5) % Plt Count 194 (150-450) k/uL MPV 7.3 Neutrophils % 73 % Lymphocytes % 14 % Monocytes % 9 % Eosinophils % 1 % Basophils % 0 % Neutrophils # 3.6 (1.3-7.7) k/uL Lymphocytes # 0.7 L (1.0-4.8) k/uL Monocytes # 0.4 (0-1.0) k/uL Eosinophils # 0.1 (0-0.7) k/uL Basophils # 0.0 (0-0.2) k/uL PT 26.9 H (9.0-12.0) sec INR 2.8 H (<1.2) APTT 31.0 H (22.0-30.0) sec Sodium 137 (137-145) mmol/L Potassium 4.1 (3.5-5.1) mmol/L Chloride 109 H (98-107) mmol/L Carbon Dioxide 21 L (22-30) mmol/L Anion Gap 7 mmol/L BUN 18 (9-20) mg/dL Creatinine 2.18 H (0.66-1.25) mg/dL Est GFR (CKD-EPI)AfAm 40 (>60 ml/min/1.73 sqM) Est GFR (CKD-EPI)NonAf 35 (>60 ml/min/1.73 sqM) Glucose 87 (74-99) mg/dL Calcium 8.6 (8.4-10.2) mg/dL Total Bilirubin 0.7 (0.2-1.3) mg/dL AST 20 (17-59) U/L ALT 13 (4-49) U/L Alkaline Phosphatase 30 L (38-126) U/L Total Protein 5.6 L (6.3-8.2) g/dL Albumin 3.4 L (3.5-5.0) g/dL Disposition Is patient prescribed a controlled substance at d/c from ED?: No Time of Disposition: 17:49 <Avel Eubanks - Last Filed: 12/07/20 17:46> <Ivelisse Vásquez - Last Filed: 12/07/20 18:42> Clinical Impression: Non-occlusive thrombus, Superficial venous thrombosis of arm Disposition: HOME SELF-CARE Condition: Stable Instructions (If sedation given, give patient instructions): Deep Vein Thrombosis Prevention (ED) Additional Instructions: Follow-up with your specialist team from [facility]. Return to emergency department if symptoms worsen. Referrals: Nonstaff,Physician [Primary Care Provider] - 1-2 days
--- NOTE | 2020-12-07 15:42 | US ---
EXAMINATION TYPE: US venous doppler duplex UE LT DATE OF EXAM: 12/07/2020 COMPARISON: NONE CLINICAL HISTORY: r/o dvt. Hx multiple blood clots in legs, arms and lungs. On coumadin. SIDE PERFORMED: Left Left Arm: Possible DVT in lower IJV. Possible clot in medial/mid subclavian vein. Positive SVT in b asilic vein. IMPRESSION: There is nonocclusive thrombus in the internal jugular vein on the left side. There is some superfici al thrombus in the basilic vein. Subclavian vein appears to show some nonocclusive thrombus.
[2020-12-07 18:11] VITALS: BP 125/83; PULSE 68
== END 2020-12-07 18:14 | disposition home or self-care (01) ==
LOC: EC 13:46
DX: I82.612 Acute embolism and thrombosis of superficial veins of left upper extremity (principal); I11.0 Hypertensive heart disease with heart failure; I50.9 Heart failure, unspecified; I25.2 Old myocardial infarction; Z79.82 Long term (current) use of aspirin; Z79.899 Other long term (current) drug therapy; Z79.01 Long term (current) use of anticoagulants; Z88.1 Allergy status to other antibiotic agents; Z88.8 Allergy status to other drugs, medicaments and biological substances; Z91.030 Bee allergy status; Z86.73 Personal history of transient ischemic attack (TIA), and cerebral infarction without residual deficits; Z95.810 Presence of automatic (implantable) cardiac defibrillator; Z94.0 Kidney transplant status
CPT/HCPCS: 36415; 80053; 85025; 85610; 85730; 99284

== ENCOUNTER 2020-12-09 13:13 | Inpatient (IN) | payer MEDICARE, OTHER ==
--- NOTE | 2020-12-09 13:59 | ED ---
General Adult HPI - General Chief complaint: Chest Pain Stated complaint: revisit - chest pain, arm numbness Time Seen by Provider: 12/09/20 13:15 Source: patient, family, RN notes reviewed, old records reviewed Mode of arrival: wheelchair Limitations: no limitations - History of Present Illness Initial comments: This is a 50-year-old male who has a past medical history significant for kidney failure with a kidney transplant about 10 years ago. Patient also has a pacemaker and defibrillator. Patient also has a history of blood clots and is on Coumadin. Patient states she was here 2 days ago and they found a blood clot in his left jugular and subclavian neither of which was completely occluding patient also has some superficial clots in the left arm. Patient states that his arm became swollen and somewhat discolored compared to the right arm that's the reason he came in today as compared patient states [facility] wanted to see him down there but they have not been any been trying to get the last 2 days been unsuccessful so started to have some sharp chest pain and decided come back to [facility] at this time. Patient denies any difficulty breathing. Patient denies any recent fever chills per patient denies abdominal pain patient denies nausea vomiting diarrhea. - Related Data Home Medications Medication Instructions Recorded Confirmed Aspirin EC [Ecotrin Low Dose] 81 mg PO DAILY 09/05/20 12/09/20 Atorvastatin [Lipitor] 40 mg PO DAILY 09/05/20 12/09/20 Folic Acid-Vit B Complex-Vit C 1 mg PO DAILY 09/05/20 12/09/20 [Nephrocaps] Furosemide [Lasix] 40 mg PO DAILY PRN 09/05/20 12/09/20 Losartan Potassium 50 mg PO DAILY 09/05/20 12/09/20 Magnesium Chloride [Slow-Mag] 128 mg PO BID 09/05/20 12/09/20 Melatonin 3 mg PO HS 09/05/20 12/09/20 Mycophenolate Sodium [Mycophenolic 720 mg PO BID 09/05/20 12/09/20 Acid] Sirolimus [Rapamune] 1 mg PO DAILY 09/05/20 12/09/20 valACYclovir HCL [Valtrex] 1,000 mg PO DAILY 09/05/20 12/09/20 Amiodarone [Cordarone] 200 mg PO DAILY 12/07/20 12/09/20 Spironolactone [Aldactone] 25 mg PO DAILY 12/07/20 12/09/20 Warfarin [Coumadin] 2.5 mg PO SUTUTHSA 12/07/20 12/09/20 Warfarin [Coumadin] 5 mg PO MOWEFR 12/07/20 12/09/20 Previous Rx's Medication Instructions Recorded carvediloL [Coreg*] 25 mg PO BID #60 tab 09/06/20 Allergies Allergy/AdvReac Type Severity Reaction Status Date / Time bee venom protein (honey bee) Allergy Swelling Verified 12/09/20 14:25 cephalexin [From Keflex] Allergy Unknown Verified 12/09/20 14:25 Childhood lisinopril Allergy Swelling Verified 12/09/20 14:25 tacrolimus [From Prograf] Allergy Unknown Verified 12/09/20 14:25 Review of Systems ROS Statement: Those systems with pertinent positive or pertinent negative responses have been documented in the HPI. ROS Other: All systems not noted in ROS Statement are negative. Past Medical History Past Medical History: Heart Failure, CVA/TIA, Deep Vein Thrombosis (DVT), Hypertension, Renal Disease Last Myocardial Infarction Date:: 2017 History of Any Multi-Drug Resistant Organisms: None Reported Past Surgical History: AICD, Heart Catheterization Additional Past Surgical History / Comment(s): renal transplant 2010 [facility] Past Anesthesia/Blood Transfusion Reactions: No Reported Reaction Type of Cardiac Device: AICD Device Placement Date:: 08/25/2020 Past Psychological History: No Psychological Hx Reported Smoking Status: Never smoker Past Alcohol Use History: None Reported Past Drug Use History: None Reported - Past Family History Father History Unknown: Yes Family Medical History: Congestive Heart Failure (CHF) General Exam - General Exam Comments Initial Comments: GENERAL: Patient is well-developed and well-nourished. Patient is nontoxic and well- hydrated and is in no acute distress. ENT: Neck is soft and supple. No significant lymphadenopathy is noted. Oropharynx is clear. Moist mucous membranes. Neck has full range of motion without eliciting any pain. EYES: The sclera were anicteric and conjunctiva were pink and moist. Extraocular movements were intact and pupils were equal round and reactive to light. Eyelids were unremarkable. PULMONARY: Unlabored respirations. Good breath sounds bilaterally. No audible rales rhonchi or wheezing was noted. CARDIOVASCULAR: There is a regular rate and rhythm without any murmurs gallops or rubs. ABDOMEN: Soft and nontender with normal bowel sounds. SKIN: Skin is clear with no lesions or rashes and otherwise unremarkable. NEUROLOGIC: Patient is alert and oriented x3. Cranial nerves II through XII are grossly intact. Motor and sensory are also intact. Normal speech, volume and content. Symmetrical smile. MUSCULOSKELETAL: Left arm is mildly swollen and mildly erythematous LYMPHATICS: No significant lymphadenopathy is noted PSYCHIATRIC: Normal psychiatric evaluation. Limitations: no limitations Course Vital Signs 12/09/20 13:20 Temperature 97.4 F L Pulse Rate 63 Respiratory 22 Rate Blood Pressure 91/56 O2 Sat by Pulse 98 Oximetry Medical Decision Making - Medical Decision Making eKG shows a paced rhythm at 62 bpm WI interval 254 QRS is 176 QT intervals 536 QTC is 544. Chest x-ray shows no acute abnormality. I spoke with Dr. Castro he agreed to admit the patient I admitted the patient and I wrote admitting orders. I consulted vascular surgery and cardiology - Lab Data Result diagrams: 12/09/20 14:04 12/09/20 14:04 Lab Results 12/09/20 12/09/20 12/09/20 Range/Units 14:04 14:04 14:04 WBC 6.0 (3.8-10.6) k/uL RBC 3.94 L (4.30-5.90) m/uL Hgb 12.3 L (13.0-17.5) gm/dL Hct 36.1 L (39.0-53.0) % MCV 91.6 (80.0-100.0) fL MCH 31.3 (25.0-35.0) pg MCHC 34.2 (31.0-37.0) g/dL RDW 15.7 H (11.5-15.5) % Plt Count 183 (150-450) k/uL MPV 7.3 Neutrophils % 80 % Lymphocytes % 11 % Monocytes % 7 % Eosinophils % 1 % Basophils % 0 % Neutrophils # 4.8 (1.3-7.7) k/uL Lymphocytes # 0.7 L (1.0-4.8) k/uL Monocytes # 0.4 (0-1.0) k/uL Eosinophils # 0.0 (0-0.7) k/uL Basophils # 0.0 (0-0.2) k/uL PT 42.3 H (9.0-12.0) sec INR 4.4 H (<1.2) APTT 26.9 (22.0-30.0) sec Sodium 135 L (137-145) mmol/L Potassium 4.1 (3.5-5.1) mmol/L Chloride 109 H (98-107) mmol/L Carbon Dioxide 21 L (22-30) mmol/L Anion Gap 5 mmol/L BUN 15 (9-20) mg/dL Creatinine 2.29 H (0.66-1.25) mg/dL Est GFR (CKD-EPI)AfAm 38 (>60 ml/min/1.73 sqM) Est GFR (CKD-EPI)NonAf 33 (>60 ml/min/1.73 sqM) Glucose 96 (74-99) mg/dL Calcium 8.4 (8.4-10.2) mg/dL Magnesium 1.8 (1.6-2.3) mg/dL Total Bilirubin 0.6 (0.2-1.3) mg/dL AST 18 (17-59) U/L ALT 11 (4-49) U/L Alkaline Phosphatase 29 L (38-126) U/L Troponin I (0.000-0.034) ng/mL Total Protein 5.4 L (6.3-8.2) g/dL Albumin 3.2 L (3.5-5.0) g/dL Coronavirus (PCR) (Not Detectd) 12/09/20 12/09/20 Range/Units 14:04 14:17 WBC (3.8-10.6) k/uL RBC (4.30-5.90) m/uL Hgb (13.0-17.5) gm/dL Hct (39.0-53.0) % MCV (80.0-100.0) fL MCH (25.0-35.0) pg MCHC (31.0-37.0) g/dL RDW (11.5-15.5) % Plt Count (150-450) k/uL MPV Neutrophils % % Lymphocytes % % Monocytes % % Eosinophils % % Basophils % % Neutrophils # (1.3-7.7) k/uL Lymphocytes # (1.0-4.8) k/uL Monocytes # (0-1.0) k/uL Eosinophils # (0-0.7) k/uL Basophils # (0-0.2) k/uL PT (9.0-12.0) sec INR (<1.2) APTT (22.0-30.0) sec Sodium (137-145) mmol/L Potassium (3.5-5.1) mmol/L Chloride (98-107) mmol/L Carbon Dioxide (22-30) mmol/L Anion Gap mmol/L BUN (9-20) mg/dL Creatinine (0.66-1.25) mg/dL Est GFR (CKD-EPI)AfAm (>60 ml/min/1.73 sqM) Est GFR (CKD-EPI)NonAf (>60 ml/min/1.73 sqM) Glucose (74-99) mg/dL Calcium (8.4-10.2) mg/dL Magnesium (1.6-2.3) mg/dL Total Bilirubin (0.2-1.3) mg/dL AST (17-59) U/L ALT (4-49) U/L Alkaline Phosphatase (38-126) U/L Troponin I <0.012 (0.000-0.034) ng/mL Total Protein (6.3-8.2) g/dL Albumin (3.5-5.0) g/dL Coronavirus (PCR) Not Detected (Not Detectd) Disposition Clinical Impression: Thrombosis of left jugular vein, Thrombosis of left subclavian vein, Chest pain Disposition: ADMITTED IP TO THIS HOSP Referrals: Nonstaff,Physician [Primary Care Provider] - 1-2 days Time of Disposition: 15:34
[2020-12-09 14:23] LABS: Basophils % (A) 0 %; Eosinophils % (A) 1 %; HCT 36.1 % (39.0-53.0); HGB 12.3 gm/dL (13.0-17.5); Lymphocytes # (A) 0.7 k/uL (1.0-4.8); Lymphocytes % (A) 11 %; MCH 31.3 pg (25.0-35.0); MCHC 34.2 g/dL (31.0-37.0); MCV 91.6 fL (80.0-100.0); Mean Platelet Volume 7.3; Monocytes # (A) 0.4 k/uL (0-1.0); Monocytes % (A) 7 %; Neutrophils # (A) 4.8 k/uL (1.3-7.7); Neutrophils % (A) 80 %; Platelet Count 183 k/uL (150-450); RBC 3.94 m/uL (4.30-5.90); RDW 15.7 % (11.5-15.5)
--- NOTE | 2020-12-09 14:31 | XR ---
EXAMINATION TYPE: XR chest 2V DATE OF EXAM: 12/09/2020 COMPARISON: Chest x-ray September 05, 2020 HISTORY: Difficulty in breathing. TECHNIQUE: Frontal and lateral views of the chest are obtained. FINDINGS: Persistent mild cardiomegaly with multi lead pacemaker/defibrillator. Small to tiny bilate ral pleural effusions slightly less prominent versus prior study. No new focal airspace opacity or pn eumothorax. The osseous structures are intact. IMPRESSION: Correlate for CHF exacerbation as there is mild cardiomegaly with small to tiny bilatera l pleural effusions seen best on lateral x-ray.
[2020-12-09 14:42] LABS: Albumin 3.2 g/dL (3.5-5.0); Total Protein 5.4 g/dL (6.3-8.2)
[2020-12-09 14:43] LABS: Calcium 8.4 mg/dL (8.4-10.2); Magnesium 1.8 mg/dL (1.6-2.3); Potassium 4.1 mmol/L (3.5-5.1); Total Bilirubin 0.6 mg/dL (0.2-1.3)
[2020-12-09 14:54] LABS: INR 4.4 (<1.2); Partial Thromboplastin Time 26.9 sec (22.0-30.0); Prothrombin Time 42.3 sec (9.0-12.0)
[2020-12-09] MEDS ORDERED: SODIUM CHLORIDE 0.9% 1,000 ML IV ONE (15:42)
[2020-12-09] MEDS ORDERED: FUROSEMIDE 40 MG TAB PO PRN (18:06)
[2020-12-09] MEDS ORDERED: WARFARIN 5 MG TAB PO SCH (18:15)
--- NOTE | 2020-12-09 19:08 | HP ---
HISTORY AND PHYSICAL 50-year-old white male, significant kidney failure, kidney transplant 10 years ago. He has a pacemaker defibrillator. He has a history of blood clots. He is on Coumadin for blood clot in his left jugular and subclavian 2 days ago, complete occluded superficial clots in the left arm. Became swollen, somewhat discolored compared to the right arm. [facility] wanted him to go down there but there are no beds. He got admitted here. We are going to get vascular involved as well as hematology. He is still getting blood clots despite being on Coumadin. MEDS: Aspirin 81 daily, Lipitor 40 daily, multivitamin daily, Lasix 40 mg daily, losartan 50 daily, magnesium chloride 128 mg b.i.d., melatonin 3 at night, Rapamune 1 mg daily, Valtrex 1000 daily, 200 daily, Aldactone 25 daily, Coumadin 2.5 on Tuesday, Tuesday, , Tuesday, 5 mg Tuesday, Tuesday, Tuesday. ALLERGIES: TO BEE VENOM, KEFLEX, LISINOPRIL AND PROGRAF. REVIEW OF SYMPTOMS: 14-point review of systems otherwise negative. PAST MEDICAL HISTORY: Hypertension, renal disease, DVTs, heart failure, CVA, TIA, heart catheterization, AICD, renal transplant 2010. PHYSICAL EXAM: Well developed, well nourished, well hydrated in no acute distress. CARDIOVASCULAR S1, S2. LUNGS: Clear. GI: Soft. HEMATOLOGY: Negative Homans. PSYCH: Fair mood and affect. NEUROLOGIC: Cranial nerves are intact. HEMATOLOGIC: His left arm mildly swollen, mildly erythematous. PSYCH: Normal affect. Temp 97.4, pulse 63, respiration 18 to 22, blood pressure 91/56, O2 98. LABORATORY DATA: Hemoglobin is 12.3 sodium 135, BUN is 15, creatinine 2.29. ASSESSMENT AND PLAN: 1. Thrombosis left jugular vein. 2. Thrombosis, left subclavian vein. 3. Chest pain. 4. Cardiology, hematology, and vascular physician consulted for possible tPA or change in blood thinner. 5. Please see further orders. MMODL / IJN: [id number] /
[2020-12-09 19:52] LABS: INR 4.4 (<1.2); Prothrombin Time 42.4 sec (9.0-12.0)
[2020-12-09] MEDS: carvediloL 12.5 MG TAB PO SCH (21:27)
[2020-12-09] MEDS: MELATONIN 3 MG TABLET PO SCH (21:27)
[2020-12-09] MEDS: MYCOPHENOLATE SODIUM DR 180 MG TABLET.DR PO SCH (21:27)
[2020-12-09] MEDS: MAGNESIUM OXIDE 400 MG TAB PO SCH (21:27)
[2020-12-10 06:02] LABS: Prothrombin Time 38.8 sec (9.0-12.0)
[2020-12-10] MEDS: SPIRONOLACTONE 25 MG TAB PO SCH (08:19)
[2020-12-10] MEDS: ASPIRIN 81 MG PO SCH (08:19)
[2020-12-10] MEDS: AMIODARONE 200 MG TAB PO SCH (08:19)
[2020-12-10] MEDS: ATORVASTATIN 40 MG TAB PO SCH (08:19)
[2020-12-10] MEDS: MYCOPHENOLATE SODIUM DR 180 MG TABLET.DR PO SCH ×2 (08:20→21:00)
[2020-12-10] MEDS: valACYclovir HCL 1,000 MG TABLET PO SCH (08:20)
[2020-12-10] MEDS: FOLIC ACID-VIT B COMPLEX-VIT C 1 CAP PO SCH (08:20)
[2020-12-10] MEDS: (Sirolimus [Rapamune] 0.5 MG Tablet) PO SCH (08:25)
[2020-12-10 09:58] LABS: Basophils # (A) 0.01 X 10*3/uL (0.00-0.10); Basophils % (A) 0.1 %; Eosinophils # (A) 0.04 X 10*3/uL (0.04-0.35); Eosinophils % (A) 0.6 %; HCT 35.7 % (39.6-50.0); HGB 11.3 g/dL (13.0-17.0); Lymphocytes % (A) 14.5 %; MCH 30.1 pg (27.0-32.0); MCHC 31.7 g/dL (32.0-37.0); MCV 94.9 fL (80.0-97.0); Mean Platelet Volume 10.3 fL (9.5-12.2); Monocytes # (A) 0.61 X 10*3/uL (0.20-1.00); Monocytes % (A) 8.9 %; Neutrophils # (A) 5.21 X 10*3/uL (1.80-7.70); Neutrophils % (A) 75.6 %; Platelet Count 177 X 10*3/uL (140-440); RBC 3.76 X 10*6/uL (4.40-5.60); RDW 15.7 % (11.5-14.5); WBC 6.89 X 10*3/uL (4.50-10.00)
[2020-12-10 10:13] LABS: African American GFR (CKD) 47.3 (60.0-200.0); Albumin 3.5 g/dL (3.80-4.90); Albumin/Globulin Ratio 2.33 (1.60-3.17); Anion Gap 6.1 mmol/L (4.00-12.00); BUN/Creat Ratio 8.42 Ratio (12.00-20.00); Calcium 8.2 mg/dL (8.7-10.3); Carbon Dioxide 19.9 mmol/L (21.6-31.8); Globulin 1.5 g/dL (1.6-3.3); Non-African American GFR(CKD) 40.8 (60.0-200.0); Total Bilirubin 0.5 mg/dL (0.3-1.2)
[2020-12-10] MEDS: MAGNESIUM OXIDE 400 MG TAB PO SCH ×2 (10:28→21:01)
[2020-12-10] MEDS: carvediloL 12.5 MG TAB PO SCH ×2 (10:28→19:31)
--- NOTE | 2020-12-10 10:35 | P.CRDCN ---
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 He follows in the office with Dr. Zepeda in [place] and Dr. Davenport in [place] for advanced heart failure treatment. We have been asked to see in consultation for chest pain. Patient presents to the emergency department with complaints of left sided chest pain and left arm swelling. States was going to go to [facility], no beds available, he started to have some chest pain and decided come back to [facility]. He states the chest pain started yesterday morning. Lasted for only a few seconds. Describes as dull, non-radiating, non-exertional. Associated some shortness of breath. Denies nausea, diaphoresis, palpitations, d izziness, lightheadedness. He states he was recently diagnosed with a DVT in his left arm. Venous Doppler LUE- 12/07/2020: Nonocclusive thrombus in the internal jugular vein on the left side. Possible Page medial/mid subclavian vein. Positive superficial thrombus in the basilic vein. He actually was scheduled for a stress test this week with his color card maker. He underwent cardiac Catheterization and echocardiogram 06/2020. Cath report reviewed revealing normal coronary arteries with EF 10-15%. His most recent echocardiogram he states was about 3 months ago, states his EF decreased to around 15%. He has chronic RLE swelling for years, that has not increased. He is a non-smoker, non-diabetic. 2D echocardiogram 06/2020 at [facility] reviewed revealed EF is estimated to be 15%. LV wall thickness is mildly increased. Severely dilated left atrium. DIAGNOSTICS EKG reveals atrial sensed paced rhythm Telemetry tracings- patient not on telemetry to review. Chest xray small tiny bilateral pleural effusions, persistent mild cardiomegaly. Laboratory reviewed, troponin negative 3, sodium 135, potassium 4.1, serum creatinine 2.2, magnesium 1.8,covid-19 negative, WBC 6, hemoglobin 12.3, platelets 183 Current cardiac medications include aspirin 81 mg daily, atorvastatin 40 mg daily, carvedilol 12.5 mg twice a day, Lasix 40 mg daily as needed for lower extremity edema, losartan 50 mg daily, amlodipine 5 mg daily and Coumadin. REVIEW OF SYSTEMS At the time of my exam: CONSTITUTIONAL: Denies fever or chills. CARDIOVASCULAR: +left sided chest pain +shortness of breath, Denies orthopnea, PND or palpitations. RESPIRATORY: Denies cough. GASTROINTESTINAL: Denies abdominal pain, diarrhea, constipation, nausea or vomiting. MUSCULOSKELETAL: +left arm swelling Denies myalgias. NEUROLOGIC: Denies numbness, tingling, headacbe or weakness. ENDOCRINE: Denies fatigue, weight change, polydipsia or polyurina. GENITOURINARY: Denies burning, hematuria or urgency with micturation. HEMATOLOGIC: Denies history of anemia or bleeding. PHYSICAL EXAMINATION Blood pressure 130/79 heart rate 61 afebrile and maintaining oxygen saturation 90% on room air. CONSTITUTIONAL: No apparent distress. HEENT: Head is normocephalic. Pupils are equal, round. Sclerae anicteric. Mucous membranes of the mouth are moist. No JVD. No carotid bruit. CHEST EXAMINATION: Lungs are clear to auscultation. No chest wall tenderness is noted on palpation or with deep breathing. HEART EXAMINATION: Regular rate and rhythm. S1, S2 heard. No murmurs, gallops or rub. ABDOMEN: Soft, nontender. Positive bowel sounds. EXTREMITIES: 2+ peripheral pulses, Moderate RLE edema, no LLE edema, moderate RUE edema and no calf tenderness. NEUROLOGIC EXAMINATION: Patient is awake, alert and oriented x3. 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 Patient was seen and examined. Past Medical History Past Medical History: Heart Failure, CVA/TIA, Deep Vein Thrombosis (DVT), Hypertension, Renal Disease Last Myocardial Infarction Date:: 2017 History of Any Multi-Drug Resistant Organisms: None Reported Past Surgical History: AICD, Heart Catheterization Additional Past Surgical History / Comment(s): renal transplant 2010 nativid[facility] iglesias Past Anesthesia/Blood Transfusion Reactions: No Reported Reaction Type of Cardiac Device: AICD Device Placement Date:: 08/25/2020 Past Psychological History: No Psychological Hx Reported Smoking Status: Never smoker Past Alcohol Use History: None Reported Past Drug Use History: None Reported - Past Family History Father History Unknown: Yes Family Medical History: Congestive Heart Failure (CHF) Medications and Allergies Home Medications Medication Instructions Recorded Confirmed Type Aspirin EC [Ecotrin Low Dose] 81 mg PO DAILY 09/05/20 12/09/20 History Atorvastatin [Lipitor] 40 mg PO DAILY 09/05/20 12/09/20 History Folic Acid-Vit B Complex-Vit C 1 mg PO DAILY 09/05/20 12/09/20 History [Nephrocaps] Furosemide [Lasix] 40 mg PO DAILY PRN 09/05/20 12/09/20 History Losartan Potassium 50 mg PO DAILY 09/05/20 12/09/20 History Magnesium Chloride [Slow-Mag] 128 mg PO BID 09/05/20 12/09/20 History Melatonin 3 mg PO HS 09/05/20 12/09/20 History Mycophenolate Sodium [Mycophenolic 720 mg PO BID 09/05/20 12/09/20 History Acid] Sirolimus [Rapamune] 1 mg PO DAILY 09/05/20 12/09/20 History valACYclovir HCL [Valtrex] 1,000 mg PO DAILY 09/05/20 12/09/20 History carvediloL [Coreg*] 25 mg PO BID #60 tab 09/06/20 12/09/20 Rx Amiodarone [Cordarone] 200 mg PO DAILY 12/07/20 12/09/20 History Spironolactone [Aldactone] 25 mg PO DAILY 12/07/20 12/09/20 History Enoxaparin [Lovenox] 90 mg SQ Q12HR 30 Days #60 syringe 12/10/20 Rx Allergies Allergy/AdvReac Type Severity Reaction Status Date / Time bee venom protein (honey bee) Allergy Swelling Verified 12/09/20 14:25 cephalexin [From Keflex] Allergy Unknown Verified 12/09/20 14:25 Childhood lisinopril Allergy Swelling Verified 12/09/20 14:25 tacrolimus [From Prograf] Allergy Unknown Verified 12/09/20 14:25 Physical Exam Vitals: Vital Signs Temp Pulse Pulse Resp BP BP Pulse Ox 12/10/20 02:00 60 12/10/20 00:03 98.3 F 60 18 101/48 97 12/09/20 21:20 97.8 F 61 18 117/76 98 12/09/20 20:00 60 18 12/09/20 17:52 59 L 17 115/69 99 12/09/20 13:20 97.4 F L 63 22 91/56 98 Intake and Output 12/09/20 12/10/20 12/10/20 22:59 06:59 14:59 Intake Total 300 Balance 300 Intake: Oral 300 Other: Voiding Method Toilet # Voids 2 Weight 90.265 kg Results 12/10/20 05:07 12/10/20 05:07 Cardiac Enzymes 12/09/20 12/09/20 12/09/20 Range/Units 14:04 14:04 21:43 AST 18 (17-59) U/L Troponin I <0.012 <0.012 (0.000-0.034) ng/mL 12/10/20 Range/Units 00:43 AST (17-59) U/L Troponin I <0.012 (0.000-0.034) ng/mL Coagulation 12/09/20 12/09/20 12/10/20 Range/Units 14:04 18:23 05:07 PT 42.3 H 42.4 H 38.8 H (9.0-12.0) sec APTT 26.9 (22.0-30.0) sec CBC 12/09/20 Range/Units 14:04 WBC 6.0 (3.8-10.6) k/uL RBC 3.94 L (4.30-5.90) m/uL Hgb 12.3 L (13.0-17.5) gm/dL Hct 36.1 L (39.0-53.0) % Plt Count 183 (150-450) k/uL Comprehensive Metabolic Panel 12/09/20 Range/Units 14:04 Sodium 135 L (137-145) mmol/L Potassium 4.1 (3.5-5.1) mmol/L Chloride 109 H (98-107) mmol/L Carbon Dioxide 21 L (22-30) mmol/L BUN 15 (9-20) mg/dL Creatinine 2.29 H (0.66-1.25) mg/dL Glucose 96 (74-99) mg/dL Calcium 8.4 (8.4-10.2) mg/dL AST 18 (17-59) U/L ALT 11 (4-49) U/L Alkaline Phosphatase 29 L (38-126) U/L Total Protein 5.4 L (6.3-8.2) g/dL Albumin 3.2 L (3.5-5.0) g/dL Current Medications Generic Name Dose Route Start Last Admin Trade Name Freq PRN Reason Stop Dose Admin Amiodarone HCl 200 mg 12/10/20 09:00 Amiodarone 200 Mg Tab PO DAILY [facility] Aspirin 81 mg 12/10/20 09:00 Aspirin 81 Mg PO DAILY [facility] Atorvastatin Calcium 40 mg 12/10/20 09:00 Atorvastatin 40 Mg Tab PO DAILY [facility] Carvedilol 25 mg 12/09/20 21:00 12/09/20 21:27 Carvedilol 12.5 Mg Tab PO Not Given AC-BID [facility] Furosemide 40 mg 12/09/20 18:06 Furosemide 40 Mg Tab PO DAILY PRN Edema Losartan Potassium 50 mg 12/10/20 09:00 Losartan 50 Mg Tab PO DAILY [facility] Magnesium Oxide 400 mg 12/09/20 21:00 12/09/20 21:27 Magnesium Oxide 400 Mg Tab PO Not Given BID [facility] Melatonin 3 mg 12/09/20 21:00 12/09/20 21:27 Melatonin 3 Mg Tablet PO Not Given HS [facility] Miscellaneous Information 0 each 12/09/20 18:14 Warfarin Per Pharmacy MISCELLANE DIRECTED PRN PHARMACY DOSING WARFARIN Multivit/Ca Carb/B Cmplx/FA/Prenat 1 each 12/10/20 09:00 Folic Acid-Vit B Complex-Vit C 1 Cap PO DAILY [facility] Mycophenolate Sodium 720 mg 12/09/20 21:00 12/09/20 21:[address] 180 Mg Tablet.Dr PO Not Given BID [facility] (Sirolimus [Rapamune 1 mg 12/10/20 09:00 ] 0.5 Mg Tablet) PO DAILY [facility] Spironolactone 25 mg 12/10/20 09:00 Spironolactone 25 Mg Tab PO DAILY [facility] Valacyclovir HCl 1,000 mg 12/10/20 09:00 Valacyclovir Hcl 1,000 Mg Tablet PO DAILY [facility] Warfarin Sodium 0 mg 12/10/20 18:00 Warfarin 0.5 Mg Tab PO 12/10/20 18:01 ONCE@1800 ONE Intake and Output 12/09/20 12/10/20 12/10/20 22:59 06:59 14:59 Intake Total 300 Balance 300 Intake: Oral 300 Other: Voiding Method Toilet # Voids 2 Weight 90.265 kg 12/09/20 14:04 12/09/20 14:04
--- NOTE | 2020-12-10 11:41 | ECHOF ---
Referral Reason:chest pain, shortness of breath MEASUREMENTS -------- HEIGHT: 180.3 cm WEIGHT: 90.3 kg BP: IVSd: 0.8 cm (0.6 - 1.1) LVIDd: 6.8 cm (3.9 - 5.3) LVPWd: 1.0 cm (0.6 - 1.1) IVSs: 1.1 cm LVIDs: 6.5 cm LVPWs: 1.1 cm LAESV Index (A-L): 29.29 ml/m MV EXCURSION: 20.180 mm (> 18.000) MV EF SLOPE: 130 mm/s (70 - 150) MV E Tip: 0.86 m/s MV DecT: 208 ms MV A Tip: 0.81 m/s MV E/A Ratio: 1.06 RAP: 5.00 mmHg RVSP: 26.94 mmHg FINDINGS -------- Pacerwire seen in RV and RA. AICD This was a technically difficult study with suboptimal views. The left ventricle is moderately dilated. Left ventricular wall thickness is normal. There is sev ere global hypokinesis of LV . Overall left ventricular systolic function is severely impaired with , an EF < 20%. Left ventricular fillimg pressure cannot be estimated due to paced rhythm. The right ventricle is normal in size. LA is midly dilated 29-33ml/m2. The right atrial size is normal. 5.0mg of Lumason was utilized for enhancement of images The aortic valve is trileaflet and appears structurally normal. The mitral valve is normal. Mild mitral regurgitation is present. The tricuspid valve appears structurally normal. Mild tricuspid regurgitation present. Right vent ricular systolic pressure is normal at < 35 mmHg. The pulmonic valve was not well visualized. Possible Thrombus in LV Corn[place] There is no pericardial effusion. CONCLUSIONS -------- 1. Pacerwire seen in RV and RA. 2. AICD 3. The left ventricle is moderately dilated. 4. Left ventricular wall thickness is normal. 5. There is severe global hypokinesis of LV . 6. Overall left ventricular systolic function is severely impaired with, an EF < 20%. 7. Left ventricular fillimg pressure cannot be estimated due to paced rhythm. 8. LA is midly dilated 29-33ml/m2. 9. Mild mitral regurgitation is present. 10. Mild tricuspid regurgitation present. 11. Possible Thrombus in LV [place] 12. There is no pericardial effusion. LINTER TENDER: Mounika Michaels RDCS
--- NOTE | 2020-12-10 12:53 | P.GSCN ---
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 He follows in the office with Dr. Zepeda in [place] and Dr. Davenport in [place] for advanced heart failure treatment. The patient was in the emergency department a couple days ago with left arm swelling. A venous Doppler ultrasound was performed showing nonocclusive thrombus in the internal jugular vein on the left side, superficial thrombus in the basilic vein, subclavian with nonocclusive thrombus. During that visit vascular surgery was contacted, there was no indication for vascular surgical intervention. She was to continue his Coumadin. He will return to the emergency department yesterday with concerns for increased swelling in the left upper extremity. Also stated he had some left chest pain. States was going to go to [facility], no beds available, he started to have some chest pain and decided come back to [facility]. He states the chest pain started yesterday morning. Lasted for only a few seconds. Describes as dull, non-radiating, non-exertional. Associated some shortness of breath. Denies nausea, diaphoresis, palpitations, dizziness, lightheadedness. He was actually scheduled to have an appointment yesterday with a vascular specialist as well as email production specialist. He states he has never been diagnosed with any clotting disorder and states usually he gets a blood clot after surgery. Denies any family history of clotting disorders. He also states he has chronic RLE swelling for years, that has not increased. Denies pain to his bilateral lower extremities. He has full range of motion of his left upper extremity, denies that he has any pain in it. Review of Systems A 14 point review of systems was completed, all pertinent positives and negatives as stated in the HPI. Past Medical History Past Medical History: Heart Failure, CVA/TIA, Deep Vein Thrombosis (DVT), Hypertension, Renal Disease Last Myocardial Infarction Date:: 2017 History of Any Multi-Drug Resistant Organisms: None Reported Past Surgical History: AICD, Heart Catheterization Additional Past Surgical History / Comment(s): renal transplant 2010 natividad iglesias Past Anesthesia/Blood Transfusion Reactions: No Reported Reaction Type of Cardiac Device: AICD Device Placement Date:: 08/25/2020 Past Psychological History: No Psychological Hx Reported Smoking Status: Never smoker Past Alcohol Use History: None Reported Past Drug Use History: None Reported - Past Family History Father History Unknown: Yes Family Medical History: Congestive Heart Failure (CHF) Medications and Allergies Home Medications Medication Instructions Recorded Confirmed Type Aspirin EC [Ecotrin Low Dose] 81 mg PO DAILY 09/05/20 12/09/20 History Atorvastatin [Lipitor] 40 mg PO DAILY 09/05/20 12/09/20 History Folic Acid-Vit B Complex-Vit C 1 mg PO DAILY 09/05/20 12/09/20 History [Nephrocaps] Furosemide [Lasix] 40 mg PO DAILY PRN 09/05/20 12/09/20 History Losartan Potassium 50 mg PO DAILY 09/05/20 12/09/20 History Magnesium Chloride [Slow-Mag] 128 mg PO BID 09/05/20 12/09/20 History Melatonin 3 mg PO HS 09/05/20 12/09/20 History Mycophenolate Sodium [Mycophenolic 720 mg PO BID 09/05/20 12/09/20 History Acid] Sirolimus [Rapamune] 1 mg PO DAILY 09/05/20 12/09/20 History valACYclovir HCL [Valtrex] 1,000 mg PO DAILY 09/05/20 12/09/20 History carvediloL [Coreg*] 25 mg PO BID #60 tab 09/06/20 12/09/20 Rx Amiodarone [Cordarone] 200 mg PO DAILY 12/07/20 12/09/20 History Spironolactone [Aldactone] 25 mg PO DAILY 12/07/20 12/09/20 History Enoxaparin [Lovenox] 90 mg SQ Q12HR 30 Days #60 syringe 12/10/20 Rx Allergies Allergy/AdvReac Type Severity Reaction Status Date / Time bee venom protein (honey bee) Allergy Swelling Verified 12/09/20 14:25 cephalexin [From Keflex] Allergy Unknown Verified 12/09/20 14:25 Childhood lisinopril Allergy Swelling Verified 12/09/20 14:25 tacrolimus [From Prograf] Allergy Unknown Verified 12/09/20 14:25 Surgical - Exam Vital Signs Temp Pulse Resp BP Pulse Ox 97.4 F L 63 22 91/56 98 12/09/20 13:20 12/09/20 13:20 12/09/20 13:20 12/09/20 13:20 12/09/20 13:20 General appearance: The patient is alert, oriented, in no acute distress. HET: Head is normocephalic and atraumatic. Neck: Supple without lymphadenopathy. Trachea midline. Heart: S1 S2. Regular rate and rhythm. Lungs: Clear to auscultation. Abdomen: Soft, nontender, nondistended. Extremities: Right lower extremity with +2 edema, hyperpigmentation. Bilateral radial pulses +2. Patient with mild swelling of his left upper arm, normal skin color, good capillary refill, full range of motion. Neurological: No focal deficits. Strength and sensation are grossly intact. Results 12/07/20-Left upper extremity venous Doppler: Nonocclusive thrombus in the internal jugular vein on the left side. Possible nonocclusive thrombus in the subclavian vein, superficial thrombus in the basilic vein. - Labs 12/10/20 05:07 12/10/20 05:07 Abnormal Lab Results - Last 24 Hours (Table) 12/09/20 12/09/20 12/09/20 Range/Units 14:04 14:04 14:04 RBC 3.94 L (4.30-5.90) m/uL Hgb 12.3 L (13.0-17.5) gm/dL Hct 36.1 L (39.0-53.0) % MCHC (32.0-37.0) g/dL RDW 15.7 H (11.5-15.5) % Lymphocytes # 0.7 L (1.0-4.8) k/uL PT 42.3 H (9.0-12.0) sec INR 4.4 H (<1.2) Sodium 135 L (137-145) mmol/L Chloride 109 H (98-107) mmol/L Carbon Dioxide 21 L (22-30) mmol/L Creatinine 2.29 H (0.66-1.25) mg/dL Alkaline Phosphatase 29 L (38-126) U/L Total Protein 5.4 L (6.3-8.2) g/dL Albumin 3.2 L (3.5-5.0) g/dL 12/09/20 12/10/20 12/10/20 Range/Units 18:23 05:07 05:07 RBC 3.76 L (4.30-5.90) m/uL Hgb 11.3 L (13.0-17.5) gm/dL Hct 35.7 L (39.0-53.0) % MCHC 31.7 L (32.0-37.0) g/dL RDW 15.7 H (11.5-15.5) % Lymphocytes # (1.0-4.8) k/uL PT 42.4 H 38.8 H (9.0-12.0) sec INR 4.4 H 4.0 H (<1.2) Sodium (137-145) mmol/L Chloride (98-107) mmol/L Carbon Dioxide (22-30) mmol/L Creatinine (0.66-1.25) mg/dL Alkaline Phosphatase (38-126) U/L Total Protein (6.3-8.2) g/dL Albumin (3.5-5.0) g/dL Diabetes panel 12/09/20 Range/Units 14:04 Sodium 135 L (137-145) mmol/L Potassium 4.1 (3.5-5.1) mmol/L Chloride 109 H (98-107) mmol/L Carbon Dioxide 21 L (22-30) mmol/L BUN 15 (9-20) mg/dL Creatinine 2.29 H (0.66-1.25) mg/dL Glucose 96 (74-99) mg/dL Calcium 8.4 (8.4-10.2) mg/dL AST 18 (17-59) U/L ALT 11 (4-49) U/L Alkaline Phosphatase 29 L (38-126) U/L Total Protein 5.4 L (6.3-8.2) g/dL Albumin 3.2 L (3.5-5.0) g/dL Calcium panel 12/09/20 Range/Units 14:04 Calcium 8.4 (8.4-10.2) mg/dL Albumin 3.2 L (3.5-5.0) g/dL Pituitary panel 12/09/20 Range/Units 14:04 Sodium 135 L (137-145) mmol/L Potassium 4.1 (3.5-5.1) mmol/L Chloride 109 H (98-107) mmol/L Carbon Dioxide 21 L (22-30) mmol/L BUN 15 (9-20) mg/dL Creatinine 2.29 H (0.66-1.25) mg/dL Glucose 96 (74-99) mg/dL Calcium 8.4 (8.4-10.2) mg/dL Adrenal panel 12/09/20 Range/Units 14:04 Sodium 135 L (137-145) mmol/L Potassium 4.1 (3.5-5.1) mmol/L Chloride 109 H (98-107) mmol/L Carbon Dioxide 21 L (22-30) mmol/L BUN 15 (9-20) mg/dL Creatinine 2.29 H (0.66-1.25) mg/dL Glucose 96 (74-99) mg/dL Calcium 8.4 (8.4-10.2) mg/dL Total Bilirubin 0.6 (0.2-1.3) mg/dL AST 18 (17-59) U/L ALT 11 (4-49) U/L Alkaline Phosphatase 29 L (38-126) U/L Total Protein 5.4 L (6.3-8.2) g/dL Albumin 3.2 L (3.5-5.0) g/dL Assessment and Plan Assessment: 1. Left upper extremity nonocclusive thrombus in internal jugular vein, superficial thrombus in the basilic vein, subclavian with nonocclusive thrombus 2. Chest pain 3. Dilated nonischemic cardiomyopathy status post AICD 4. Chronic kidney disease status post renal transplantation 2010 5. LV thrombus on warfarin 6. History of DVTs 7. History of CVA 8. Hypertension 9. Dyslipidemia Plan: 1. Agree with hematology consult, appreciate their recommendations on anticoagulation 2. Elevate left upper extremity 3. There is no indication for any scale or surgical intervention at this time 4. Compression stocking to right lower extremity 5. Recommend continued outpatient follow-up with email production specialist and previously scheduled vascular surgeon Thank you for this consultation, we will sign off at this time. The impression and plan of care has been dictated as directed. Dr. Sykes I performed a history and examination of this patient, discussed the same with the dictator. I agree with the dictator's note ,documented as a scribe. Any additional findings or plans will be noted.
[2020-12-10] MEDS ORDERED: PHYTONADIONE ORAL 5 MG/5 ML ORAL.SYRG PO STA (13:18)
--- NOTE | 2020-12-10 16:12 | P.CONS ---
History of Present Illness - Reason for Consult Consult date: 12/10/20 Anticoagulation thombolic events Requesting physician: Martin Castro - Chief Complaint Chest Pain - History of Present Illness Dave is a 50-year-old male patient with a complicated medical history significant for CKD, resulting in kidney transplant in 2010, Hypertension, non- ischemic dilated cardiomyopathy with AICD, Left Ventribular thrombus, Ventricular Fibrillation, DVTs, Right NET FISHER ischemic stroke, dyslipidemia, and now a new acute left jugular and subclavin thrombus. He follows Dr. Davenport in [place] for his advanced cardiac monitoring and treatment. He has apparently been on Warfarin although recently subtherapeutic which likely resulted in acute thrombus, his coding tech at [place] was initiating referral for business planning analyst out of [facility], however, with COVID this has been delayed. The past couple days he has been experiencing increased left sharp chest pain, non-radiating, non-exertional. therefore he presented to [facility]. Positive superficial thrombus in the basilic vein. He actually was scheduled for a stress test this week with his coding tech. He underwent cardiac Catheterization and echocardiogram 06/2020. Cath report reviewed revealing normal coronary arteries with EF 10-15%. His most recent echocardiogram he states was about 3 months ago, states his EF decreased to around 15%. He has chronic RLE swelling for years, that has not increased. He is a non-smoker, non- diabetic. Per the patient they have been changing his cardiac medications around and there was a day last week he had an INR 1.6, although at that time he did not have increased upper extremity swelling. He denies any recent trauma. His right lower extremity is also very swollen, he states this is chronic after his transplant and has over time become worse after walking. His girlfriend is at bedside. Dr. Osuna did see and examine patient this am and discussed the intermittent treatment with lovenox until he is able to follow-up with his coding tech and business planning analyst out of [facility]. He had asked nursing to have us come back today and discuss further as they had more questions. I arrived back to room at 2:40pm. Patient continued with how he is frustrated given the wait and he wants to go home. I explained the recommendations for lovenox as we are unable to 100% confirm that this thrombolic event was due to subtherapeutic INR. He did not make eye contact, he looked at phone during the conversation and when asked a question he continued on how he has been waiting since yesterday for these decisions to be made. Again he was seen by hematology cardiology and primary services early this am. I explained we are not able to talk about yesterday, but we can talk about the recommended plan today and if he would like to go forward with this plan, reversing INR and starting subcutaneous therapeutic lovenox, this would be our recommendations to confirm he is anticoagulated therapeutically in the interim to seeing his medical team at [facility]. I have also recommended RLE Doppler (which he has refused at this time) RLE is 3-4+, warm chin and some erythema. It was not productive to discuss his ER wait on arrival with him today, I did apologize for the incontinence it may have caused him, but did express that at this time these are the recommendations. Unfortunately, during a pandemic hospital waits maybe longer than normal wait times, although it is not within my power at this moment to fix that. What is within my control at this moment is making sure he is anti-coagulated to decrease any risks of further clotting. He will let the nurse know if he decides to move forward with Lovenox. Review of Systems All systems: negative Constitutional: Reports as per HPI Past Medical History Past Medical History: Heart Failure, CVA/TIA, Deep Vein Thrombosis (DVT), Hypertension, Renal Disease Last Myocardial Infarction Date:: 2017 History of Any Multi-Drug Resistant Organisms: None Reported Past Surgical History: AICD, Heart Catheterization Additional Past Surgical History / Comment(s): renal transplant 2010 [facility] Past Anesthesia/Blood Transfusion Reactions: No Reported Reaction Type of Cardiac Device: AICD Device Placement Date:: 08/25/2020 Past Psychological History: No Psychological Hx Reported Smoking Status: Never smoker Past Alcohol Use History: None Reported Past Drug Use History: None Reported - Past Family History Father History Unknown: Yes Family Medical History: Congestive Heart Failure (CHF) Medications and Allergies Home Medications Medication Instructions Recorded Confirmed Type Aspirin EC [Ecotrin Low Dose] 81 mg PO DAILY 09/05/20 12/09/20 History Atorvastatin [Lipitor] 40 mg PO DAILY 09/05/20 12/09/20 History Folic Acid-Vit B Complex-Vit C 1 mg PO DAILY 09/05/20 12/09/20 History [Nephrocaps] Furosemide [Lasix] 40 mg PO DAILY PRN 09/05/20 12/09/20 History Losartan Potassium 50 mg PO DAILY 09/05/20 12/09/20 History Magnesium Chloride [Slow-Mag] 128 mg PO BID 09/05/20 12/09/20 History Melatonin 3 mg PO HS 09/05/20 12/09/20 History Mycophenolate Sodium [Mycophenolic 720 mg PO BID 09/05/20 12/09/20 History Acid] Sirolimus [Rapamune] 1 mg PO DAILY 09/05/20 12/09/20 History valACYclovir HCL [Valtrex] 1,000 mg PO DAILY 09/05/20 12/09/20 History carvediloL [Coreg*] 25 mg PO BID #60 tab 09/06/20 12/09/20 Rx Amiodarone [Cordarone] 200 mg PO DAILY 12/07/20 12/09/20 History Spironolactone [Aldactone] 25 mg PO DAILY 12/07/20 12/09/20 History Enoxaparin [Lovenox] 90 mg SQ Q12HR 30 Days #60 syringe 12/10/20 Rx Allergies Allergy/AdvReac Type Severity Reaction Status Date / Time bee venom protein (honey bee) Allergy Swelling Verified 12/09/20 14:25 cephalexin [From Keflex] Allergy Unknown Verified 12/09/20 14:25 Childhood lisinopril Allergy Swelling Verified 12/09/20 14:25 tacrolimus [From Prograf] Allergy Unknown Verified 12/09/20 14:25 Physical Exam Vitals: Vital Signs Temp Pulse Pulse Resp BP BP Pulse Ox 12/10/20 07:00 98.1 F 61 16 130/79 98 12/10/20 02:00 60 12/10/20 00:03 98.3 F 60 18 101/48 97 12/09/20 21:20 97.8 F 61 18 117/76 98 12/09/20 20:00 60 18 12/09/20 17:52 59 L 17 115/69 99 12/09/20 13:20 97.4 F L 63 22 91/56 98 Intake and Output 12/09/20 12/10/20 12/10/20 22:59 06:59 14:59 Intake Total 300 Balance 300 Intake: Oral 300 Other: Voiding Method Toilet # Voids 2 Weight 90.265 kg - Constitutional General appearance: cooperative, no acute distress - EENT Eyes: EOMI ENT: NA/AT, normal oropharynx - Neck Neck: normal ROM - Respiratory Respiratory: bilateral: CTA - Cardiovascular Rhythm: irregularly irregular leg Peripheral Edema: right: 4+ (Erythema and warm to tough), Other (Left Upper Extremity 2+) - Gastrointestinal General gastrointestinal: normal bowel sounds, soft - Integumentary Integumentary: pale - Neurologic Neurologic: CNII-XII intact - Musculoskeletal Musculoskeletal: generalized weakness, strength equal bilaterally - Psychiatric He is frustrated and irritated that he is in hospital Psychiatric: A&O x's 3, appropriate affect Results CBC & Chem 7: 12/10/20 05:07 12/10/20 05:07 Labs: Abnormal Lab Results - Last 24 Hours (Table) 12/09/20 12/09/20 12/09/20 Range/Units 14:04 14:04 14:04 RBC 3.94 L (4.30-5.90) m/uL Hgb 12.3 L (13.0-17.5) gm/dL Hct 36.1 L (39.0-53.0) % MCHC (32.0-37.0) g/dL RDW 15.7 H (11.5-15.5) % Lymphocytes # 0.7 L (1.0-4.8) k/uL PT 42.3 H (9.0-12.0) sec INR 4.4 H (<1.2) Sodium 135 L (137-145) mmol/L Chloride 109 H (98-107) mmol/L Carbon Dioxide 21 L (22-30) mmol/L Creatinine 2.29 H (0.66-1.25) mg/dL Est GFR (CKD-EPI)AfAm (60.0-200.0) Est GFR (CKD-EPI)NonAf (60.0-200.0) BUN/Creatinine Ratio (12.00-20.00) Ratio Glucose (70-110) mg/dL Calcium (8.7-10.3) mg/dL Alkaline Phosphatase 29 L (38-126) U/L Total Protein 5.4 L (6.3-8.2) g/dL Albumin 3.2 L (3.5-5.0) g/dL Globulin (1.6-3.3) g/dL 12/09/20 12/10/20 12/10/20 Range/Units 18:23 05:07 05:07 RBC 3.76 L (4.30-5.90) m/uL Hgb 11.3 L (13.0-17.5) gm/dL Hct 35.7 L (39.0-53.0) % MCHC 31.7 L (32.0-37.0) g/dL RDW 15.7 H (11.5-15.5) % Lymphocytes # (1.0-4.8) k/uL PT 42.4 H (9.0-12.0) sec INR 4.4 H (<1.2) Sodium (137-145) mmol/L Chloride 113 H (98-107) mmol/L Carbon Dioxide 19.9 L (22-30) mmol/L Creatinine 1.9 H (0.66-1.25) mg/dL Est GFR (CKD-EPI)AfAm 47.3 L (60.0-200.0) Est GFR (CKD-EPI)NonAf 40.8 L (60.0-200.0) BUN/Creatinine Ratio 8.42 L (12.00-20.00) Ratio Glucose 121 H (70-110) mg/dL Calcium 8.2 L (8.7-10.3) mg/dL Alkaline Phosphatase 29 L (38-126) U/L Total Protein 5.0 L (6.3-8.2) g/dL Albumin 3.50 L (3.5-5.0) g/dL Globulin 1.5 L (1.6-3.3) g/dL 12/10/20 Range/Units 05:07 RBC (4.30-5.90) m/uL Hgb (13.0-17.5) gm/dL Hct (39.0-53.0) % MCHC (32.0-37.0) g/dL RDW (11.5-15.5) % Lymphocytes # (1.0-4.8) k/uL PT 38.8 H (9.0-12.0) sec INR 4.0 H (<1.2) Sodium (137-145) mmol/L Chloride (98-107) mmol/L Carbon Dioxide (22-30) mmol/L Creatinine (0.66-1.25) mg/dL Est GFR (CKD-EPI)AfAm (60.0-200.0) Est GFR (CKD-EPI)NonAf (60.0-200.0) BUN/Creatinine Ratio (12.00-20.00) Ratio Glucose (70-110) mg/dL Calcium (8.7-10.3) mg/dL Alkaline Phosphatase (38-126) U/L Total Protein (6.3-8.2) g/dL Albumin (3.5-5.0) g/dL Globulin (1.6-3.3) g/dL Venous US: report reviewed Assessment and Plan (1) Chest pain Current Visit: Yes Status: Acute Code(s): R07.9 - CHEST PAIN, UNSPECIFIED SNOMED Code(s): 94531390 (2) Thrombosis of left jugular vein Current Visit: Yes Status: Acute Code(s): I82.890 - ACUTE EMBOLISM AND THROMBOSIS OF OTHER SPECIFIED VEINS SNOMED Code(s): 367558672 (3) Thrombosis of left subclavian vein Current Visit: Yes Status: Acute Code(s): I82.B12 - ACUTE EMBOLISM AND THROMBOSIS OF LEFT SUBCLAVIAN VEIN SNOMED Code(s): 477352575 (4) Non-occlusive thrombus Current Visit: No Status: Acute Code(s): I82.90 - ACUTE EMBOLISM AND THROMBOSIS OF UNSPECIFIED VEIN SNOMED Code(s): 478060118 (5) Superficial venous thrombosis of arm Current Visit: No Status: Acute Code(s): I82.619 - ACUTE EMBOLISM AND THROMBOSIS OF SUPERFIC VN UNSP UP EXTREM SNOMED Code(s): 104034468 Plan: aDve is a 50 year old male with rather complex medical history and recurrent thrombolic events. Given it is unknown if he was therapeutic on warfarin when the new development of DVT in LUE and SVT in LUE INR is 4 today, discussed with vascular surgery and await am INR. Less then 2 will start Lovenox. Greater than 35 minutes spent with patient and girlfriend, attempted to answer questions and explained the information is inconclusive in regards to if thrombolic event happened on warfarin, therapeutic or not. Patient is anxious to go home, he is upset with wait times from yesterday, and he was less than engaged in conversation therefore re-education maybe needed. RLE increasing edema, patient refuses doppler Physician attest: I have completed the full history and physical and agree with above dictation, dictated as a ascribe
[2020-12-10] MEDS: LOSARTAN 50 MG TAB PO SCH (16:46)
[2020-12-10] MEDS ORDERED: WARFARIN 0.5 MG TAB PO ONE (18:00)
[2020-12-10] MEDS ORDERED: WARFARIN 5 MG TAB PO SCH (18:06)
[2020-12-10] MEDS: MELATONIN 3 MG TABLET PO SCH (21:01)
[2020-12-11 06:45] LABS: INR 3.6 (<1.2); Prothrombin Time 35.1 sec (9.0-12.0)
[2020-12-11] MEDS ORDERED: PHYTONADIONE ORAL 5 MG/5 ML ORAL.SYRG PO STA (07:35)
[2020-12-11] MEDS ORDERED: PHYTONADIONE 5 MG in SODIUM CHLORIDE 0.9% 50 ML IVPB STA (08:01)
[2020-12-11] MEDS: MAGNESIUM OXIDE 400 MG TAB PO SCH (08:29)
[2020-12-11] MEDS: AMIODARONE 200 MG TAB PO SCH (08:29)
[2020-12-11] MEDS: carvediloL 12.5 MG TAB PO SCH (08:29)
[2020-12-11] MEDS: ASPIRIN 81 MG PO SCH (08:29)
[2020-12-11] MEDS: ATORVASTATIN 40 MG TAB PO SCH (08:29)
[2020-12-11] MEDS: SPIRONOLACTONE 25 MG TAB PO SCH (08:29)
[2020-12-11] MEDS: FOLIC ACID-VIT B COMPLEX-VIT C 1 CAP PO SCH (08:30)
[2020-12-11] MEDS: valACYclovir HCL 1,000 MG TABLET PO SCH (08:30)
[2020-12-11] MEDS: MYCOPHENOLATE SODIUM DR 180 MG TABLET.DR PO SCH (08:30)
[2020-12-11] MEDS: (Sirolimus [Rapamune] 0.5 MG Tablet) PO SCH (08:33)
[2020-12-11 09:00] VITALS: PULSE 60; RESP 16; TEMP 97.9
[2020-12-11 09:16] LABS: Basophils # (A) 0.01 X 10*3/uL (0.00-0.10); Basophils % (A) 0.2 %; Eosinophils # (A) 0.04 X 10*3/uL (0.04-0.35); Eosinophils % (A) 0.7 %; HCT 38.2 % (39.6-50.0); Lymphocytes # (A) 0.86 X 10*3/uL (0.90-5.00); Lymphocytes % (A) 14.7 %; MCHC 31.4 g/dL (32.0-37.0); MCV 95.5 fL (80.0-97.0); Monocytes # (A) 0.48 X 10*3/uL (0.20-1.00); Monocytes % (A) 8.2 %; Neutrophils # (A) 4.43 X 10*3/uL (1.80-7.70); Neutrophils % (A) 75.7 %; Platelet Count 168 X 10*3/uL (140-440); RDW 15.4 % (11.5-14.5); WBC 5.85 X 10*3/uL (4.50-10.00)
--- NOTE | 2020-12-11 10:37 | CDI ---
Documentation Clarification Form Date: 12/11/2020 10:22:00 AM From: Etta Charles RN, CCDS Admit Date: 12/09/2020 03:42:00 PM Patient Name: Dave Barboza Visit Number: [id number] ATTENTION: The Clinical Documentation Specialists (CDI) and [facility] Coding Staff appreciate your assistance in clarifying documentation. Please respond to the clarification below the line at the bottom and electronically sign. The CDI & [facility] Coding staff will review the response and follow-up if needed. Please note: Queries are made part of the Legal Health Record. If you have any questions, please contact the author of this message via ITS. Dr. Martin Castro Your patient has the documented diagnosis of unspecified CHF in the H&P and Consults. Additional information regarding the type and acuity of CHF is requested. History/Risk Factors: CHF, DVT, HTN, Renal disease with kidney transplant 2010, AICD, CVA Clinical Indicators: VS/Pulse OX: Temp 97.4, HR 63, RR 22, B/P 91/56, Spo2 98% RA BNP: not checked 12/10 Echocardiogram Results: EF <20%, severe global hypokinesis of LV 12/09 Chest X Ray: Correlate for CHF exacerbation as there is mild cardiomegaly with small to tiny bilateral pleural effusions." Treatment: Cordarone 200 mg Po Daily Coreg 25 mg PO AC BID Lasix 40 mg PO daily PRN edema Cozaar 50 mg PO Daily Aldactone 25 mg Po Daily In your professional opinion, can you please clarify the acuity and type of CHF if known? [ ] Chronic Systolic Heart Failure (reduced EF) [ ] Chronic Systolic & Diastolic Heart Failure [ ] Other, please specify [ ] Unable to determine (Template Last Revised: September 2020) MTDD
--- NOTE | 2020-12-11 10:47 | CDI ---
Documentation Clarification Form Date: 12/11/2020 10:38:10 AM From: Etta Charles RN, CCDS Admit Date: 12/09/2020 03:42:00 PM Patient Name: Dave Barboza Visit Number: [id number] ATTENTION: The Clinical Documentation Specialists (CDI) and [facility] Coding Staff appreciate your assistance in clarifying documentation. Please respond to the clarification below the line at the bottom and electronically sign. The CDI & [facility] Coding staff will review the response and follow-up if needed. Please note: Queries are made part of the Legal Health Record. If you have any questions, please contact the author of this message via ITS. Dr. Martin Castro Unspecified CKD is documented 12/10 Consults and requires further specificity. Additional clarification regarding the stage of CKD is requested. 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 Please clarify the stage of the CKD, if known: [ ] CKD Stage 3 (GFR 30-59) [ ] CKD Stage 3a (GFR 45-59) [ ] CKD Stage 3b (GFR 30-44) [ ] CKD Stage 4 (GFR 15-29) [ ] Other, please specify [ ] Unable to determine (Template last revised: September 2020) MTDD
[2020-12-11 11:24] LABS: INR 2.4 (<1.2); Prothrombin Time 23.4 sec (9.0-12.0)
[2020-12-11] MEDS ORDERED: PHYTONADIONE 2.5 MG in SODIUM CHLORIDE 0.9% 50 ML IVPB STA (11:45)
[2020-12-11 11:57] LABS: African American GFR (CKD) 58.2 (60.0-200.0); Albumin 3.5 g/dL (3.80-4.90); Albumin/Globulin Ratio 2.5 (1.60-3.17); Anion Gap 13.5 mmol/L (4.00-12.00); BUN/Creat Ratio 8.75 Ratio (12.00-20.00); Calcium 8.3 mg/dL (8.7-10.3); Carbon Dioxide 14.5 mmol/L (21.6-31.8); Globulin 1.4 g/dL (1.6-3.3); Non-African American GFR(CKD) 50.2 (60.0-200.0); Potassium 4.2 mmol/L (3.5-5.5); Total Bilirubin 0.8 mg/dL (0.2-1.2); Total Protein 4.9 g/dL (6.2-8.2)
--- NOTE | 2020-12-11 12:08 | PN ---
PROGRESS NOTE DATE OF SERVICE: 12/10/2020 This is a 50-year-old white male chest pain with thrombosis to the upper extremity. He has got a longstanding history with occupational therapy aide down in [place]. Dr. Osuna saw him here from Hematology and recommended .INR 4.1, watch another day, see if his INR comes down. Start him on Lovenox. He can be discharged. Followup with a occupational therapy aide down at [facility]. CARDIOVASCULAR: S1, S2. LUNGS: Clear. GI: Soft. ASSESSMENT: Chest pain, thrombosis, recurrent, unclear etiology. Possible discharge home tomorrow on Lovenox if his INR lowers down. Follow up with Hematology as an outpatient. MMODL / IJN: [id number] /
[2020-12-11 12:09] VITALS: BP 110/69
[2020-12-11] MEDS: LOSARTAN 50 MG TAB PO SCH (12:11)
[2020-12-11] MEDS ORDERED: ENOXAPARIN 100 MG/ML SYRINGE SQ SCH (13:00)
--- NOTE | 2020-12-11 20:55 | P.PN ---
Subjective Progress Note Date: 12/11/20 Principal diagnosis: Upper extremity DVT INR greater than 3 this am, IV vitamin K given and decrease to 2.4. Additional VItamin K given and then lovenox ok to start (INR less than 2) spoke with nursing and patient who understands plan. He is anxious to leave after and will follow-up with his primary medical team out of [facility] Objective - Vital Signs Vital signs: Vital Signs Temp 97.9 F 12/11/20 07:00 Pulse 60 12/11/20 07:00 Resp 16 12/11/20 08:00 BP 110/69 12/11/20 12:08 Pulse Ox 96 12/11/20 07:00 Intake & Output 12/11/20 12/11/20 12/12/20 06:59 18:59 06:59 Intake Total 100 Balance 100 Intake: Oral 100 Other: Voiding Method Toilet Toilet # Voids 2 - Exam - Constitutional General appearance: cooperative, no acute distress - EENT Eyes: EOMI ENT: NA/AT, normal oropharynx - Neck Neck: normal ROM - Respiratory Respiratory: bilateral: CTA - Cardiovascular Rhythm: irregularly irregular leg Peripheral Edema: right: 4+ (Erythema and warm to tough), Other (Left Upper Extremity 2+) - Gastrointestinal General gastrointestinal: normal bowel sounds, soft - Integumentary Integumentary: pale - Neurologic Neurologic: CNII-XII intact - Musculoskeletal Musculoskeletal: generalized weakness, strength equal bilaterally - Psychiatric He is frustrated and irritated that he is in hospital Psychiatric: A&O x's 3, appropriate affect - Labs CBC & Chem 7: 12/11/20 06:14 12/11/20 06:14 Labs: Abnormal Lab Results - Last 24 Hours (Table) 12/11/20 12/11/20 12/11/20 Range/Units 06:14 06:14 06:14 RBC 4.00 L (4.40-5.60) X 10*6/uL Hgb 12.0 L (13.0-17.0) g/dL Hct 38.2 L (39.6-50.0) % MCHC 31.4 L (32.0-37.0) g/dL RDW 15.4 H (11.5-14.5) % Lymphocytes # 0.86 L (0.90-5.00) X 10*3/uL PT 35.1 H (9.0-12.0) sec INR 3.6 H (<1.2) Chloride 112 H (96-109) mmol/L Carbon Dioxide 14.5 L (21.6-31.8) mmol/L Anion Gap 13.50 H (4.00-12.00) mmol/L Creatinine 1.6 H (0.6-1.5) mg/dL Est GFR (CKD-EPI)AfAm 58.2 L (60.0-200.0) Est GFR (CKD-EPI)NonAf 50.2 L (60.0-200.0) BUN/Creatinine Ratio 8.75 L (12.00-20.00) Ratio Calcium 8.3 L (8.7-10.3) mg/dL Alkaline Phosphatase 30 L (41-126) U/L Total Protein 4.9 L (6.2-8.2) g/dL Albumin 3.50 L (3.80-4.90) g/dL Globulin 1.4 L (1.6-3.3) g/dL 12/11/20 Range/Units 10:30 RBC (4.40-5.60) X 10*6/uL Hgb (13.0-17.0) g/dL Hct (39.6-50.0) % MCHC (32.0-37.0) g/dL RDW (11.5-14.5) % Lymphocytes # (0.90-5.00) X 10*3/uL PT 23.4 H (9.0-12.0) sec INR 2.4 H (<1.2) Chloride (96-109) mmol/L Carbon Dioxide (21.6-31.8) mmol/L Anion Gap (4.00-12.00) mmol/L Creatinine (0.6-1.5) mg/dL Est GFR (CKD-EPI)AfAm (60.0-200.0) Est GFR (CKD-EPI)NonAf (60.0-200.0) BUN/Creatinine Ratio (12.00-20.00) Ratio Calcium (8.7-10.3) mg/dL Alkaline Phosphatase (41-126) U/L Total Protein (6.2-8.2) g/dL Albumin (3.80-4.90) g/dL Globulin (1.6-3.3) g/dL Assessment and Plan (1) Chest pain Status: Acute Code(s): R07.9 - CHEST PAIN, UNSPECIFIED SNOMED Code(s): 07488320 (2) Thrombosis of left jugular vein Status: Acute Code(s): I82.890 - ACUTE EMBOLISM AND THROMBOSIS OF OTHER SPECIFIED VEINS SNOMED Code(s): 849918360 (3) Thrombosis of left subclavian vein Status: Acute Code(s): I82.B12 - ACUTE EMBOLISM AND THROMBOSIS OF LEFT SUBCLAVIAN VEIN SNOMED Code(s): 654790857 (4) Non-occlusive thrombus Status: Acute Code(s): I82.90 - ACUTE EMBOLISM AND THROMBOSIS OF UNSPECIFIED VEIN SNOMED Code(s): 966291464 (5) Superficial venous thrombosis of arm Status: Acute Code(s): I82.619 - ACUTE EMBOLISM AND THROMBOSIS OF SUPERFIC VN UNSP UP EXTREM SNOMED Code(s): 670006148 Plan: Dave is a 50 year old male with rather complex medical history and recurrent thrombolic events. Given it is unknown if he was therapeutic on warfarin when the new development of DVT in LUE and SVT in LUE RLE increasing edema, patient refuses doppler OK for Lovenox to begin when INR less than 2, and then ok for discharge as long as follows up with shipping inspector next week through [facility] as planned. Discussed with patient and nursing.
--- NOTE | 2020-12-17 09:24 | CDI ---
Documentation Clarification Form 2nd request Date: 12/11/2020 10:22:00 AM From: Etta Charles RN, CCDS Admit Date: 12/09/2020 03:42:00 PM Patient Name: Dave Barboza Visit Number: [id number] Discharge Date: 12/11/2020 01:14:00 PM ATTENTION: The Clinical Documentation Specialists (CDI) and [facility] Coding Staff appreciate your assistance in clarifying documentation. Please respond to the clarification below the line at the bottom and electronically sign. The CDI & [facility] Coding staff will review the response and follow-up if needed. Please note: Queries are made part of the Legal Health Record. If you have any questions, please contact the author of this message via ITS. Dr. Martin Castro Your patient has the documented diagnosis of unspecified CHF in the H&P and Consults. Additional information regarding the type and acuity of CHF is requested. History/Risk Factors: CHF, DVT, HTN, Renal disease with kidney transplant 2010, AICD, CVA Clinical Indicators: VS/Pulse OX: Temp 97.4, HR 63, RR 22, B/P 91/56, Spo2 98% RA BNP: not checked 12/10 Echocardiogram Results: EF <20%, severe global hypokinesis of LV 12/09 Chest X Ray: Correlate for CHF exacerbation as there is mild cardiomegaly with small to tiny bilateral pleural effusions." Treatment: Cordarone 200 mg Po Daily Coreg 25 mg PO AC BID Lasix 40 mg PO daily PRN edema Cozaar 50 mg PO Daily Aldactone 25 mg Po Daily In your professional opinion, can you please clarify the acuity and type of CHF if known? [ ] Chronic Systolic Heart Failure (reduced EF) [ ] Chronic Systolic & Diastolic Heart Failure [ ] Other, please specify [ ] Unable to determine (Template Last Revised: September 2020) MTDD
--- NOTE | 2020-12-17 09:26 | CDI ---
Documentation Clarification Form 2nd Request Date: 12/11/2020 10:38:00 AM From: Etta Charles RN, CCDS Admit Date: 12/09/2020 03:42:00 PM Patient Name: Dave Barboza Visit Number: [id number] Discharge Date: 12/11/2020 01:14:00 PM ATTENTION: The Clinical Documentation Specialists (CDI) and [facility] Coding Staff appreciate your assistance in clarifying documentation. Please respond to the clarification below the line at the bottom and electronically sign. The CDI & [facility] Coding staff will review the response and follow-up if needed. Please note: Queries are made part of the Legal Health Record. If you have any questions, please contact the author of this message via ITS. Dr. Martin Castro Unspecified CKD is documented 12/10 Consults and requires further specificity. Additional clarification regarding the stage of CKD is requested. 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 Please clarify the stage of the CKD, if known: [ ] CKD Stage 3 (GFR 30-59) [ ] CKD Stage 3a (GFR 45-59) [ ] CKD Stage 3b (GFR 30-44) [ ] CKD Stage 4 (GFR 15-29) [ ] Other, please specify [ ] Unable to determine (Template last revised: September 2020) MTDD
--- NOTE | 2020-12-23 20:11 | CDI ---
Documentation Clarification Form 3rd request Date: 12/11/2020 10:22:00 AM From: Etta Charles RN, CCDS Admit Date: 12/09/2020 03:42:00 PM Patient Name: Dave Barboza Visit Number: [id number] ATTENTION: The Clinical Documentation Specialists (CDI) and [facility] Coding Staff appreciate your assistance in clarifying documentation. Please respond to the clarification below the line at the bottom and electronically sign. The CDI & [facility] Coding staff will review the response and follow-up if needed. Please note: Queries are made part of the Legal Health Record. If you have any questions, please contact the author of this message via ITS. Dr. Martin Castro Your patient has the documented diagnosis of unspecified CHF in the H&P and Consults. Additional information regarding the type and acuity of CHF is requested. History/Risk Factors: CHF, DVT, HTN, Renal disease with kidney transplant 2010, AICD, CVA Clinical Indicators: VS/Pulse OX: Temp 97.4, HR 63, RR 22, B/P 91/56, Spo2 98% RA BNP: not checked 12/10 Echocardiogram Results: EF <20%, severe global hypokinesis of LV 12/09 Chest X Ray: Correlate for CHF exacerbation as there is mild cardiomegaly with small to tiny bilateral pleural effusions." Treatment: Cordarone 200 mg Po Daily Coreg 25 mg PO AC BID Lasix 40 mg PO daily PRN edema Cozaar 50 mg PO Daily Aldactone 25 mg Po Daily In your professional opinion, can you please clarify the acuity and type of CHF if known? [ ] Chronic Systolic Heart Failure (reduced EF) [ ] Chronic Systolic & Diastolic Heart Failure [ ] Other, please specify [ ] Unable to determine (Template Last Revised: September 2020) MTDD
--- NOTE | 2020-12-23 20:13 | CDI ---
Documentation Clarification Form 3rd request Date: 12/11/2020 10:38:10 AM From: Etta Charles RN, CCDS Admit Date: 12/09/2020 03:42:00 PM Patient Name: Dave Barboza Visit Number: [id number] ATTENTION: The Clinical Documentation Specialists (CDI) and [facility] Coding Staff appreciate your assistance in clarifying documentation. Please respond to the clarification below the line at the bottom and electronically sign. The CDI & [facility] Coding staff will review the response and follow-up if needed. Please note: Queries are made part of the Legal Health Record. If you have any questions, please contact the author of this message via ITS. Dr. Martin Castro Unspecified CKD is documented 12/10 Consults and requires further specificity. Additional clarification regarding the stage of CKD is requested. 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 Please clarify the stage of the CKD, if known: [ ] CKD Stage 3 (GFR 30-59) [ ] CKD Stage 3a (GFR 45-59) [ ] CKD Stage 3b (GFR 30-44) [ ] CKD Stage 4 (GFR 15-29) [ ] Other, please specify [ ] Unable to determine (Template last revised: September 2020) MTDD
--- NOTE | 2020-12-29 11:00 | CDI ---
Documentation Clarification Form Date: 12/29/2020 10:22:00 AM From: Sylvia Sanchez Phone: Admit Date: 12/09/2020 03:42:00 PM Patient Name: Dave Barboza Visit Number: [id number] Discharge Date: 12/11/2020 01:14:00 PM ATTENTION: The Clinical Documentation Specialists (CDI) and [facility] Coding Staff appreciate your assistance in clarifying documentation. Please respond to the clarification below the line at the bottom and electronically sign. The CDI & [facility] Coding staff will review the response and follow-up if needed. Please note: Queries are made part of the Legal Health Record. If you have any questions, please contact the author of this message via ITS. Dr. Martin Castro, Your patient has the documented diagnosis of unspecified CHF in the H&P and Consults. Additional information regarding the type and acuity of CHF is requested. History/Risk Factors: CHF, DVT, HTN, Renal disease with kidney transplant 2010, AICD, CVA Clinical Indicators: VS/Pulse OX: Temp 97.4, HR 63, RR 22, B/P 91/56, Spo2 98% RA BNP: not checked 12/10 Echocardiogram Results: EF <20%, severe global hypokinesis of LV 12/09 Chest X Ray: Correlate for CHF exacerbation as there is mild cardiomegaly with small to tiny bilateral pleural effusions." Treatment: Cordarone 200 mg Po Daily Coreg 25 mg PO AC BID Lasix 40 mg PO daily PRN edema Cozaar 50 mg PO Daily Aldactone 25 mg Po Daily In your professional opinion, can you please clarify the acuity and type of CHF if known? [ ] Chronic Systolic Heart Failure (reduced EF) [ ] Chronic Systolic & Diastolic Heart Failure [ ] Other, please specify [ ] Unable to determine MTDD
--- NOTE | 2020-12-29 11:09 | CDI ---
Documentation Clarification Form Date: 12/29/20 From: Sylvia Daniel Phone: Admit Date: 12/09/2020 03:42:00 PM Patient Name: Dave Barboza Visit Number: [id number] Discharge Date: 12/11/2020 01:14:00 PM ATTENTION: The Clinical Documentation Specialists (CDI) and [facility] Coding Staff appreciate your assistance in clarifying documentation. Please respond to the clarification below the line at the bottom and electronically sign. The CDI & [facility] Coding staff will review the response and follow-up if needed. Please note: Queries are made part of the Legal Health Record. If you have any questions, please contact the author of this message via ITS. Dr. Martin Castro, Unspecified CKD is documented 12/10 Consults and requires further specificity. Additional clarification regarding the stage of CKD is requested. 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 Please clarify the stage of the CKD, if known: [ ] CKD Stage 3 (GFR 30-59) [ ] CKD Stage 3a (GFR 45-59) [ ] CKD Stage 3b (GFR 30-44) [ ] CKD Stage 4 (GFR 15-29) [ ] Other, please specify [ ] Unable to determine MTDD
== END 2020-12-11 13:14 | disposition home or self-care (01) | DRG 300 ==
LOC: EC 13:13 → 6NMEDSUR 15:42
PROVIDERS: ADMIT Family Medicine; ATTEND Family Medicine
DX: I82.C12 Acute embolism and thrombosis of left internal jugular vein (principal); I42.0 Dilated cardiomyopathy; I13.0 Hypertensive heart and chronic kidney disease with heart failure and stage 1 through stage 4 chronic kidney disease, or unspecified chronic kidney disease; Z94.0 Kidney transplant status; I50.9 Heart failure, unspecified; I82.B12 Acute embolism and thrombosis of left subclavian vein; I82.612 Acute embolism and thrombosis of superficial veins of left upper extremity; N18.9 Chronic kidney disease, unspecified; Z20.822 Contact with and (suspected) exposure to COVID-19; E78.5 Hyperlipidemia, unspecified; I25.2 Old myocardial infarction; Z79.82 Long term (current) use of aspirin; Z79.01 Long term (current) use of anticoagulants; Z79.899 Other long term (current) drug therapy; Z88.8 Allergy status to other drugs, medicaments and biological substances; Z88.1 Allergy status to other antibiotic agents; Z91.030 Bee allergy status; Z86.718 Personal history of other venous thrombosis and embolism; Z95.810 Presence of automatic (implantable) cardiac defibrillator; Z86.73 Personal history of transient ischemic attack (TIA), and cerebral infarction without residual deficits; Z86.79 Personal history of other diseases of the circulatory system; Z82.49 Family history of ischemic heart disease and other diseases of the circulatory system
CPT/HCPCS: 36415; 71046; 80053; 83735; 84484; 85025; 85610; 85730; 87635; 93005; 93306; 99284; 99285

== ENCOUNTER 2023-05-17 22:05 | Inpatient (IN) | payer MEDICARE, OTHER ==
[2023-05-17] MEDS ORDERED: MORPHINE SULFATE 4 MG/ML SYRINGE IV STA (22:14)
--- NOTE | 2023-05-17 22:19 | ED ---
Chest Pain HPI <Zohaib Elliott - Last Filed: 05/19/23 12:27> - General Source: patient, EMS, RN notes reviewed, old records reviewed Mode of arrival: EMS Limitations: no limitations - History of Present Illness MD Complaint: chest pain -: hour(s) Pain Location: left chest Pain Radiation: none Severity: moderate Severity scale (1-10): 4 Quality: tightness, aching, heaviness Consistency: constant Improves With: nothing Worsens With: nothing Other Symptoms: palpitations Treatments Prior to Arrival: none <Riki Jiménez - Last Filed: 05/24/23 02:18> - General Chief Complaint: Chest Pain Stated Complaint: Chest pain - History of Present Illness Initial Comments: This is a 52-year-old male to the emergency department for evaluation today. Patient should presents today with severe chest pain weakness and not feeling well. Patient has significant medical history including renal transplant heart disease pacer defibrillator with recent episode of defibrillator going off and evaluation. Patient was in this emergency room 2 days ago transferred to [facility] and discharged home. Patient was at [facility] today and just discharged today with persistent chest pain and states that something does not feel right. Is very anxious on arrival with chest pain (Riki Jiménez) - Related Data Home Medications Medication Instructions Recorded Confirmed Atorvastatin [Lipitor] 40 mg PO DAILY@0900 09/05/20 05/17/23 Furosemide [Lasix] 40 mg PO DAILY PRN 09/05/20 05/17/23 Mycophenolate Sodium [Mycophenolic 720 mg PO BID@0900,2100 09/05/20 05/17/23 Acid] Sirolimus [Rapamune] 0.5 mg PO DAILY@0730 09/05/20 05/17/23 valACYclovir HCL [Valtrex] 1,000 mg PO DAILY@0900 09/05/20 05/17/23 Spironolactone [Aldactone] 25 mg PO DIRECTED 12/07/20 05/17/23 Amiodarone [Cordarone] See Taper PO DIRECTED 05/17/23 05/17/23 Apixaban [Eliquis] 5 mg PO BID@0730,1730 05/17/23 05/17/23 Dapagliflozin Propanediol [Farxiga] 10 mg PO DAILY@1730 05/17/23 05/17/23 Losartan [Cozaar] 25 mg PO DAILY@0900 05/17/23 05/17/23 Metoprolol Succinate (ER) [Toprol 100 mg PO DAILY@0730 05/17/23 05/17/23 XL] Metoprolol Succinate (ER) [Toprol 50 mg PO HS@2100 05/17/23 05/17/23 Xl] Omeprazole 40 mg PO DAILY PRN 05/17/23 05/17/23 Allergies Allergy/AdvReac Type Severity Reaction Status Date / Time bee venom protein (honey bee) Allergy Swelling Verified 05/17/23 22:11 cephalexin [From Keflex] Allergy Unknown Verified 05/17/23 22:11 Childhood lisinopril Allergy Swelling Verified 05/17/23 22:11 tacrolimus [From Prograf] Allergy Unknown Verified 05/17/23 22:11 Review of Systems ROS Other: All systems not noted in ROS Statement are negative. <Zohaib Elliott - Last Filed: 05/19/23 12:27> ROS Other: All systems not noted in ROS Statement are negative. <Riki Jiménez - Last Filed: 05/24/23 02:18> ROS Statement: Those systems with pertinent positive or pertinent negative responses have been documented in the HPI. EKG Findings - EKG Comments: EKG Findings:: EKG is uncertain paced rhythm 65 QRS 198 QTc <Riki Jiménez - Last Filed: 05/24/23 02:18> Past Medical History Past Medical History: Heart Failure, CVA/TIA, Deep Vein Thrombosis (DVT), Hypertension, Renal Disease Last Myocardial Infarction Date:: 2018 History of Any Multi-Drug Resistant Organisms: None Reported Past Surgical History: AICD, Heart Catheterization Additional Past Surgical History / Comment(s): renal transplant 2010 [facility], ablation of heart february 2023 Past Anesthesia/Blood Transfusion Reactions: No Reported Reaction Type of Cardiac Device: AICD Device Placement Date:: 08/25/2020 Past Psychological History: No Psychological Hx Reported Smoking Status: Never smoker Past Alcohol Use History: None Reported Past Drug Use History: None Reported - Past Family History Father History Unknown: Yes Family Medical History: Congestive Heart Failure (CHF) <Riki Jiménez - Last Filed: 05/24/23 02:18> General Exam General appearance: alert, in no apparent distress, anxious Head exam: Present: atraumatic, normocephalic, normal inspection Eye exam: Present: normal appearance, PERRL, EOMI. Absent: scleral icterus, conjunctival injection, periorbital swelling ENT exam: Present: normal exam, mucous membranes moist Neck exam: Present: normal inspection. Absent: tenderness, meningismus, lymphadenopathy Respiratory exam: Present: normal lung sounds bilaterally. Absent: respiratory distress, wheezes, rales, rhonchi, stridor Cardiovascular Exam: Present: regular rate, normal rhythm, normal heart sounds. Absent: systolic murmur, diastolic murmur, rubs, gallop, clicks GI/Abdominal exam: Present: soft, normal bowel sounds. Absent: distended, tenderness, guarding, rebound, rigid Extremities exam: Present: normal inspection, full ROM, normal capillary refill. Absent: tenderness, pedal edema, joint swelling, calf tenderness Back exam: Present: normal inspection Neurological exam: Present: alert, oriented X3, CN II-XII intact Psychiatric exam: Present: normal affect, normal mood Skin exam: Present: warm, dry, intact, normal color. Absent: rash <Riki Jiménez - Last Filed: 05/24/23 02:18> Course <Riki Jiménez - Last Filed: 05/24/23 02:18> Vital Signs 05/17/23 05/17/23 05/17/23 22:06 22:11 22:38 Temperature 98 F 98.6 F Pulse Rate 63 68 Pulse Rate [ Right] Respiratory 17 18 Rate Blood Pressure 133/103 132/94 Blood Pressure [Right Arm] O2 Sat by Pulse 100 98 Oximetry 05/18/23 05/18/23 05/18/23 00:06 01:30 02:43 Temperature Pulse Rate 6 L 59 L 59 L Pulse Rate [ Right] Respiratory 18 18 16 Rate Blood Pressure 120/89 115/87 113/79 Blood Pressure [Right Arm] O2 Sat by Pulse 95 95 96 Oximetry 05/18/23 05/18/23 05/18/23 04:10 06:56 07:52 Temperature 98.0 F Pulse Rate 60 58 L 61 Pulse Rate [ Right] Respiratory 16 18 18 Rate Blood Pressure 115/83 122/87 119/84 Blood Pressure [Right Arm] O2 Sat by Pulse 96 96 96 Oximetry 05/18/23 05/18/23 05/18/23 08:44 10:00 11:00 Temperature Pulse Rate 60 57 L 58 L Pulse Rate [ Right] Respiratory 16 16 18 Rate Blood Pressure 117/87 122/80 117/78 Blood Pressure [Right Arm] O2 Sat by Pulse 96 96 95 Oximetry 05/18/23 05/18/23 05/18/23 12:00 13:00 14:00 Temperature Pulse Rate 56 L 57 L 63 Pulse Rate [ Right] Respiratory 14 14 18 Rate Blood Pressure 134/95 120/85 138/85 Blood Pressure [Right Arm] O2 Sat by Pulse 96 96 98 Oximetry 05/18/23 05/18/23 05/18/23 15:00 16:00 17:00 Temperature Pulse Rate 67 66 63 Pulse Rate [ Right] Respiratory 18 16 16 Rate Blood Pressure 128/86 141/96 127/87 Blood Pressure [Right Arm] O2 Sat by Pulse 97 98 97 Oximetry 05/18/23 05/18/23 05/18/23 18:00 19:00 20:00 Temperature Pulse Rate 60 64 64 Pulse Rate [ Right] Respiratory 16 16 16 Rate Blood Pressure 125/85 129/90 127/103 Blood Pressure [Right Arm] O2 Sat by Pulse 96 98 98 Oximetry 05/18/23 05/18/23 05/18/23 20:06 21:00 21:28 Temperature Pulse Rate 63 63 62 Pulse Rate [ Right] Respiratory 14 18 16 Rate Blood Pressure 119/92 119/95 117/80 Blood Pressure [Right Arm] O2 Sat by Pulse 97 96 Oximetry 05/18/23 05/18/23 05/19/23 22:00 23:00 00:00 Temperature Pulse Rate 60 66 60 Pulse Rate [ Right] Respiratory 26 H 28 H 22 Rate Blood Pressure 125/92 122/91 128/94 Blood Pressure [Right Arm] O2 Sat by Pulse 98 97 Oximetry 05/19/23 05/19/23 05/19/23 01:00 03:00 04:00 Temperature Pulse Rate 60 58 L 58 L Pulse Rate [ Right] Respiratory 18 18 14 Rate Blood Pressure 110/75 122/88 116/79 Blood Pressure [Right Arm] O2 Sat by Pulse 97 97 98 Oximetry 05/19/23 05/19/23 05/19/23 05:00 05:23 06:34 Temperature Pulse Rate 58 L 99 58 L Pulse Rate [ Right] Respiratory 14 16 16 Rate Blood Pressure 123/97 164/84 103/71 Blood Pressure [Right Arm] O2 Sat by Pulse 96 95 95 Oximetry 05/19/23 05/19/23 05/19/23 06:40 07:25 10:40 Temperature Pulse Rate 62 63 60 Pulse Rate [ Right] Respiratory 18 18 Rate Blood Pressure 107/83 122/83 Blood Pressure [Right Arm] O2 Sat by Pulse 96 97 Oximetry 05/19/23 05/19/23 05/19/23 12:02 13:53 14:10 Temperature 97.9 F Pulse Rate 62 60 Pulse Rate [ 66 Right] Respiratory 16 18 16 Rate Blood Pressure 118/83 116/78 Blood Pressure 111/75 [Right Arm] O2 Sat by Pulse 97 97 98 Oximetry - Reevaluation(s) Reevaluation #1: 05/17/23 23:10 Medical record is reviewed (Riki Jiménez) Reevaluation #2: 05/17/23 23:11 patient still with pain but does feel improved (Riki Jiménez) Reevaluation #3: 05/17/23 23:33 Patient informed results questions answered (Riki Jiménez) Reevaluation #4: 05/17/23 23:11 Was pt. sent in by a medical professional or institution ([facility] Wilks, BARLEY STEEPER, urgent care, hospital, or [facility]...) When possible be specific @ -no Did you speak to anyone other than the patient for history (EMS, parent, family, police, friend...)? What history was obtained from this source @ -no Did you review nursing and triage notes (agree or disagree)? Why? @ -agree Are old charts reviewed (outside hosp., previous admission, EMS record, old EKG, old radiological studies, urgent care reports/EKG's, [facility] records)? Report findings @ -yes Differential Diagnosis (chest pain, altered mental status, abdominal pain women, abdominal pain men, vaginal bleeding, weakness, fever, dyspnea, syncope, headache, dizziness, GI bleed, back pain, seizure, CVA, palpatations, mental health, musculoskeletal)? @ -prior EKG interpreted by me (3pts min.). @ -yes X-rays interpreted by me (1pt min.). @ -yes CT interpreted by me (1pt min.). @ -no U/S interpreted by me (1pt. min.). @ -no What testing was considered but not performed or refused? (CT, X-rays, U/S, labs)? Why? @ -none What meds were considered but not given or refused? Why? @ -none Did you discuss the management of the patient with other professionals (professionals i.e. , PA, BARLEY STEEPER, lab, RT, psych nurse, director of social work, pricing analyst, teacher, school services officer, lining caser)? Give summary @ -no Was smoking cessation discussed for >3mins.? @ -no Was critical care preformed (if so, how long)? @ -no Were there social determinants of health that impacted care today? How? (Homelessness, low income, unemployed, alcoholism, drug addiction, transportation, low edu. Level, literacy, decrease access to med. care, [facility]ci, rehab)? @ -none Was there de-escalation of care discussed even if they declined (Discuss DNR or withdrawal of care, Hospice)? DNR status @ -no What co-morbidities impacted this encounter? (DM, HTN, Smoking, COPD, CAD, Cancer, CVA, ARF, Chemo, Hep., AIDS, mental health diagnosis, sleep apnea, morbid obesity)? @ -none Was patient admitted / discharged? Hospital course, mention meds given and route, prescriptions, significant lab abnormalities, going to OR and other pertinent info. @ - 52 male to the emergency department for evaluation today. Patient is here today for evaluation regards to persistent chest pain, patient has history of decubiti discharge and significant cardiac history she is not heart failure clinic hit head for [facility] patient requesting transfer to care at his former hospital. Transfer for admission Undiagnosed new problem with uncertain prognosis? @ -no Drug Therapy requiring intensive monitoring for toxicity (Heparin, Nitro, Insulin, Cardizem)? @ -no Were any procedures done? @ -no Diagnosis/symptom? @ -Chest pain, arrhythmia Acute, or Chronic, or Acute on Chronic? @ -Acute Uncomplicated (without systemic symptoms) or Complicated (systemic symptoms)? @ -Complicated Side effects of treatment? @ -no Exacerbation, Progression, or Severe Exacerbation? @ -exacerbation Poses a threat to life or bodily function? How? (Chest pain, [place], [place], pneumonia, PE, COPD, DKA, ARF, appy, cholecystitis, CVA, Diverticulitis, Homicidal, Suicidal, threat to staff... and all critical care pts) @ -yes severe chest pain, acute coronary syndrome and arrhythmia (Riki Jiménez) Reevaluation #5: 05/17/23 23:11 Differential Chest Pain: Stable Angina, Unstable Angina, STEMI, NSTEMI Aortic Dissection, Pneumothorax, Musculoskeletal, Esophageal Spasm GERD, Cholecystitis, Pancreatitis, Zoster, this is not meant to be an all-inclusive list. (Riki Jiménez) Chest Pain MDM <Zohaib Elliott - Last Filed: 05/19/23 12:27> <Riki Jiménez - Last Filed: 05/24/23 02:18> - MDM 05/19/2023 1227pm: Due to prolonged delays in transfers secondary to [facility] for not having any available beds patient requested be admitted to our facility with cardiology consultation. Patient evaluated at the bedside at 12:23 PM. He states that he is asymptomatic at the bedside. Patient states he does not want to wait anymore for transfer and would prefer to be admitted to our facility. He is concerned that his defibrillator went off but not fully. Reports he was recently discharged from [facility] 2 or 3 days ago after being transferred there. He states that he saw the heart failure team who made some gestures his medications ultimately was discharged to home. Case discussed with Dr. Keita who is agreeable with excepting care for this patient. Cardiology will be consulted. (Zohaib Elliott) 52 male to the emergency department for evaluation today. Patient is here today for evaluation regards to persistent chest pain, patient has history of decubiti discharge and significant cardiac history she is not heart failure clinic hit head [facility] patient requesting transfer to care at his former hospital. (Riki Jiménez) Disposition <Zohaib Elliott - Last Filed: 05/19/23 12:27> Is patient prescribed a controlled substance at d/c from ED?: No - Out of Hospital Transfer - Req. Specs Out of Hospital Transfer - Requested Specifics: Other Emergency Center ([facility] <Riki Jiménez - Last Filed: 05/24/23 02:18> Clinical Impression: Defibrillator discharge, Chest pain Disposition: OTHER INSTITUTION NOT DEFINED Condition: Undetermined
[2023-05-17] MEDS ORDERED: LORazepam 2 MG/ML INJ IV STA (22:27)
[2023-05-17 22:41] LABS: Basophils % (A) 0 %; Eosinophils # (A) 0.1 k/uL (0-0.7); Eosinophils % (A) 1 %; HGB 14.6 gm/dL (13.0-17.5); Lymphocytes # (A) 1.8 k/uL (1.0-4.8); Lymphocytes % (A) 16 %; MCH 31.2 pg (25.0-35.0); MCHC 32.4 g/dL (31.0-37.0); MCV 96.3 fL (80.0-100.0); Mean Platelet Volume 8.1; Monocytes # (A) 0.7 k/uL (0-1.0); Monocytes % (A) 6 %; Neutrophils # (A) 8.7 k/uL (1.3-7.7); Neutrophils % (A) 76 %; Platelet Count 262 k/uL (150-450); RBC 4.67 m/uL (4.30-5.90); WBC 11.5 k/uL (3.8-10.6)
[2023-05-17 22:53] LABS: ALT 15 U/L (4-49); AST 18 U/L (17-59); African American GFR (CKD) 43 (>60 ml/min/1.73 sqM); Albumin 3.9 g/dL (3.5-5.0); Alkaline Phosphatase 37 U/L (38-126); Anion Gap 13 mmol/L; Blood Urea Nitrogen 16 mg/dL (9-20); Calcium 9.1 mg/dL (8.4-10.2); Carbon Dioxide 15 mmol/L (22-30); Chloride 106 mmol/L (98-107); Glucose 112 mg/dL (74-99); Magnesium 1.9 mg/dL (1.6-2.3); Non-African American GFR(CKD) 37 (>60 ml/min/1.73 sqM); Phosphorus 2.6 mg/dL (2.5-4.5); Potassium 3.6 mmol/L (3.5-5.1); Sodium 134 mmol/L (137-145); Total Protein 6.7 g/dL (6.3-8.2)
[2023-05-17 22:58] LABS: Partial Thromboplastin Time 26.5 sec (22.0-30.0); Prothrombin Time 10.9 sec (9.0-12.0)
[2023-05-17 23:01] LABS: NT-Pro-B-Type Natriuretic Pept 919 pg/mL
--- NOTE | 2023-05-17 23:07 | XR ---
EXAM: XR Chest, 1 View CLINICAL HISTORY: ITS.REASON XR Reason: cp TECHNIQUE: Frontal view of the chest. COMPARISON: No relevant prior studies available. FINDINGS: Lungs: Unremarkable. No consolidation. Pleural space: Unremarkable. No pneumothorax. Heart: Unremarkable. No cardiomegaly. Mediastinum: Unremarkable. Bones/joints: Unremarkable. Tubes, lines and devices: Triple lead AICD/pacemaker. IMPRESSION: No acute findings in the chest.
[2023-05-18] MEDS ORDERED: FUROSEMIDE 40 MG TAB PO PRN (07:14)
[2023-05-18] MEDS ORDERED: PANTOPRAZOLE 40 MG TABLET PO PRN (07:14)
[2023-05-18] MEDS ORDERED: SIROLIMUS 0.5 MG PO SCH (07:30)
[2023-05-18] MEDS: APIXABAN 5 MG TAB PO SCH ×3 (08:06→17:36)
[2023-05-18] MEDS: AMIODARONE 200 MG TAB PO SCH ×3 (08:08→21:28)
[2023-05-18] MEDS: valACYclovir HCL 1,000 MG TABLET PO SCH (08:13)
[2023-05-18] MEDS: MYCOPHENOLATE SODIUM DR 180 MG TABLET.DR PO SCH ×2 (08:50→22:07)
[2023-05-18] MEDS: ATORVASTATIN 40 MG TAB PO SCH (10:21)
[2023-05-18] MEDS: METOPROLOL SUCCINATE (ER) 100 MG TAB.ER.24H PO SCH (10:21)
[2023-05-18] MEDS: LOSARTAN 25 MG TAB PO SCH (10:22)
[2023-05-18] MEDS: DAPAGLIFLOZIN PROPANEDIOL 10 MG TABLET PO SCH (17:37)
[2023-05-18] MEDS: METOPROLOL SUCCINATE (ER) 50 MG TAB.ER.24H PO SCH (21:29)
[2023-05-19] MEDS: SPIRONOLACTONE 25 MG TAB PO SCH (06:48)
[2023-05-19] MEDS: APIXABAN 5 MG TAB PO SCH ×2 (06:48→18:53)
[2023-05-19] MEDS: METOPROLOL SUCCINATE (ER) 100 MG TAB.ER.24H PO SCH (06:48)
[2023-05-19] MEDS: SIROLIMUS 0.5 MG PO SCH (06:49)
[2023-05-19] MEDS: AMIODARONE 200 MG TAB PO SCH ×2 (10:43→21:47)
[2023-05-19] MEDS: ATORVASTATIN 40 MG TAB PO SCH (10:44)
[2023-05-19] MEDS: MYCOPHENOLATE SODIUM DR 180 MG TABLET.DR PO SCH ×2 (10:45→21:47)
[2023-05-19] MEDS: LOSARTAN 25 MG TAB PO SCH (10:45)
[2023-05-19] MEDS: valACYclovir HCL 1,000 MG TABLET PO SCH (10:47)
[2023-05-19] MEDS ORDERED: NITROGLYCERIN SL TABS 0.4 MG TAB SUBLINGUAL PRN (12:28)
--- NOTE | 2023-05-19 16:03 | P.HPIM ---
History of Present Illness H&P Date: 05/19/23 This is a pleasant 52-year-old male who presented to the emergency department who recently presented to the emergency department via EMS with chest pain and aching and heaviness with concerns of possible myocardial infarction. Patient does have significant past medical history of renal transplant with heart disease and defibrillator and normally follows with [facility] and is well known to their system although EMS given protocol had to report to the closest emergency department and patient lives out in [place]. Patient's carton liner is Dr. Davenport out of [facility] and reports to having history of atrial fibrillation and has had ablations. Patient is maintained on anticoagulation along with anti-rejection medications. Patient also does have history of heart failure with CVA/TIA, DVT, most likely lymphadenopathy in the right lower extremity, hypertension and again AICD placement. Patient was initially attempting to be transferred to [facility] although no bed available and was admitted here for cardiac evaluation. Spoke with the transfer team at [facility] and they are aware and he is on her list as "category B "and expected to have a better within 48 hours. [facility]Spar patient has been in the hospital here for 40 hours and called the transfer team again and they report he will have a bed within the next 12 hours. Review Of Systems: Constitutional: No fever, no chills, no night sweats. No weight change. No weakness, fatigue or lethargy. No daytime sleepiness. EENT: No headache. No blurred vision or double vision, no loss of vision. No loss of Hearing, no ringing in the ears, no dizziness. No nasal drainage or congestion. No epistaxis. No sore throat. Lungs: No shortness of breath, cough, no sputum production. No wheezing. Cardiovascular: Reported chest pain that has resolved , no lower extremity edema. No palpitations. No paroxysmal nocturnal dyspnea. No orthopnea. No lightheadedness or dizziness. No syncopal episodes. Abdominal: No abdominal pain. No nausea, vomiting. No diarrhea. No constipation. No bloody or tarry stools.. No loss of appetite. Genitourinary: No dysuria, increased frequency, urgency. No urinary retention. Musculoskeletal: No myalgias. No muscle weakness, no gait dysfunction, no frequent falls. No back pain. No neck pain. Integumentary: No wounds, no lesions. No rash or pruritus. No unusual bruising. No change in hair or nails. Neurologic: No aphasia. No facial droop. No change in mentation. No head injury. No headache. No paralysis. No paresthesia. Psychiatric: No depression. No anxiety. No mood swings. Endocrine: No abnormal blood sugars. No weight change. No excessive sweating or thirst. No cold intolerance. PHYSICAL EXAMINATION: GENERAL: The patient is alert and oriented x4, Well developed, well nourished. HEENT: Pupils are round and equally reacting to light. EOMI. no scleral icterus. No conjunctival pallor. Normocephalic, atraumatic. No pharyngeal erythema. No thyromegaly. CARDIOVASCULAR: S1 and S2 muffled PULMONARY: diminished breath sounds bilaterally with no wheezing or rhonchi noted. ABDOMEN: soft. Nontender on exam. obese. non-distended, normoactive bowel sounds. No palpable organomegaly. MUSCULOSKELETAL: No joint swelling or deformity. EXTREMITIES: No cyanosis, clubbing, or pedal edema. NEUROLOGICAL: Gross neurological examination did not reveal any focal deficits. Diffuse weakness SKIN: No rashes. Assessment: Chest pain, rule out ACS History of heart failure with most recent EF 25% Nonischemic cardiomyopathy Kidney transplant history in 2010 History of cardiac ablation in February 2023 History of AICD placement in 2020 History of CVA/TIA History of DVT History of hypertension GI prophylaxis DVT prophylaxis Full code Plan: Patient was an extensive hold in the ER reevaluated by ER physicians as patient continues to hold for a bed at [facility] as they were trying to transfer as all of his care is out of [facility]'s although no bed available. Discussed with transfer team that there may possibly be a bed available within the next 12 hours and he is on the list. Will likely need to update the admitt ing physician for transfer. In the meantime patient being admitted here with cardiology to see Home medications reviewed and resumed as appropriate Continue telemetry monitoring Awaiting cardiology evaluation Troponins have been negative COVID-19 is negative The impression and plan of care has been dictated by Ivelisse Guerrier, nurse practitioner as directed. Dr. Osito MD I have performed a history and examination and MDM of this patient, discussed the same with the dictator, and agree with the dictator's assessment and plan as written ,documented as a scribe. Based on total visit time, I have performed more than 50% of the visit. Any additional findings or plans will be noted. Past Medical History Past Medical History: Heart Failure, CVA/TIA, Deep Vein Thrombosis (DVT), Hypertension, Renal Disease Last Myocardial Infarction Date:: 2017 History of Any Multi-Drug Resistant Organisms: None Reported Past Surgical History: AICD, Heart Catheterization Additional Past Surgical History / Comment(s): renal transplant 2010 [facility], ablation of heart february 2023 Past Anesthesia/Blood Transfusion Reactions: No Reported Reaction Type of Cardiac Device: AICD Device Placement Date:: 08/25/2020 Past Psychological History: No Psychological Hx Reported Smoking Status: Never smoker Past Alcohol Use History: None Reported Past Drug Use History: None Reported - Past Family History Father History Unknown: Yes Family Medical History: Congestive Heart Failure (CHF) Medications and Allergies Home Medications Medication Instructions Recorded Confirmed Type Atorvastatin [Lipitor] 40 mg PO DAILY@0900 09/05/20 05/17/23 History Furosemide [Lasix] 40 mg PO DAILY PRN 09/05/20 05/17/23 History Mycophenolate Sodium [Mycophenolic 720 mg PO BID@0900,209909/05/20 05/17/23 History Acid] Sirolimus [Rapamune] 0.5 mg PO DAILY@72909/05/20 05/17/23 History valACYclovir HCL [Valtrex] 1,000 mg PO DAILY@0900 09/05/20 05/17/23 History Spironolactone [Aldactone] 25 mg PO DIRECTED 12/07/20 05/17/23 History Amiodarone [Cordarone] See Taper PO DIRECTED 05/17/23 05/17/23 History Apixaban [Eliquis] 5 mg PO BID@0730,17305/17/23 05/17/23 History Dapagliflozin Propanediol [Farxiga] 10 mg PO DAILY@172905/17/23 05/17/23 History Losartan [Cozaar] 25 mg PO DAILY@0905/17/23 05/17/23 History Metoprolol Succinate (ER) [Toprol 100 mg PO DAILY@0730 05/17/23 05/17/23 History XL] Metoprolol Succinate (ER) [Toprol 50 mg PO HS@2100 05/17/23 05/17/23 History Xl] Omeprazole 40 mg PO DAILY PRN 05/17/23 05/17/23 History Allergies Allergy/AdvReac Type Severity Reaction Status Date / Time bee venom protein (honey bee) Allergy Swelling Verified 05/17/23 22:11 cephalexin [From Keflex] Allergy Unknown Verified 05/17/23 22:11 Childhood lisinopril Allergy Swelling Verified 05/17/23 22:11 tacrolimus [From Prograf] Allergy Unknown Verified 05/17/23 22:11 Physical Exam Vitals: Vital Signs Pulse Resp BP Pulse Ox 05/19/23 13:53 60 18 116/78 97 05/19/23 12:02 62 16 118/83 97 05/19/23 10:40 60 18 122/83 97 05/19/23 07:25 63 18 107/83 96 05/19/23 06:40 62 05/19/23 06:34 58 L 16 103/71 95 05/19/23 05:23 99 16 164/84 95 05/19/23 05:00 58 L 14 123/97 96 05/19/23 04:00 58 L 14 116/79 98 05/19/23 03:00 58 L 18 122/88 97 05/19/23 01:00 60 18 110/75 97 05/19/23 00:00 60 22 128/94 97 05/18/23 23:00 66 28 H 122/91 05/18/23 22:00 60 26 H 125/92 98 05/18/23 21:28 62 16 117/80 96 05/18/23 21:00 63 18 119/95 05/18/23 20:06 63 14 119/92 97 05/18/23 20:00 64 16 127/103 98 05/18/23 19:00 64 16 129/90 98 05/18/23 18:00 60 16 125/85 96 05/18/23 17:00 63 16 127/87 97 05/18/23 16:00 66 16 141/96 98 05/18/23 15:00 67 18 128/86 97 Results CBC & Chem 7: 05/17/23 22:17 05/17/23 22:17
[2023-05-19] MEDS: DAPAGLIFLOZIN PROPANEDIOL 10 MG TABLET PO SCH (21:47)
[2023-05-19] MEDS: METOPROLOL SUCCINATE (ER) 50 MG TAB.ER.24H PO SCH (21:47)
[2023-05-20] MEDS: APIXABAN 5 MG TAB PO SCH (06:12)
[2023-05-20] MEDS: METOPROLOL SUCCINATE (ER) 100 MG TAB.ER.24H PO SCH (06:12)
[2023-05-20] MEDS: SIROLIMUS 0.5 MG PO SCH (06:12)
[2023-05-20] MEDS: SPIRONOLACTONE 25 MG TAB PO SCH (06:12)
[2023-05-20 07:45] VITALS: BP 108/68; PULSE 61; RESP 14; TEMP 97.8
[2023-05-20] MEDS ORDERED: ASPIRIN 325 MG TAB PO SCH (09:00)
[2023-05-20] MEDS ORDERED: AMIODARONE 200 MG TAB PO SCH (09:15)
[2023-05-20 09:48] LABS: Chol/HDL Ratio 2.12 Ratio; LDL Cholesterol,Calculated 36.7 mg/dL (0.0-131.0); VLDL Calculation 13.42 mg/dL (5.00-40.00)
[2023-05-20] MEDS: AMIODARONE 200 MG TAB PO SCH (10:27)
[2023-05-20] MEDS: ATORVASTATIN 40 MG TAB PO SCH (10:27)
[2023-05-20] MEDS: LOSARTAN 25 MG TAB PO SCH (10:28)
[2023-05-20] MEDS: valACYclovir HCL 1,000 MG TABLET PO SCH (10:28)
[2023-05-20] MEDS: MYCOPHENOLATE SODIUM DR 180 MG TABLET.DR PO SCH (10:28)
--- NOTE | 2023-05-20 11:00 | P.CRDCN ---
History of Present Illness History of present illness: HISTORY OF PRESENT ILLNESS: This is a 52-year-old male with a past medical history significant for chronic kidney disease status post transplant in 2010, hypertension, nonischemic dilated cardiomyopathy, history of AICD implantation, LV thrombus, ventricular fibrill ation, DVT, CVA, and hyperlipidemia. Patient follows with a hadoop application developer at [facility]. We have been asked to see the patient in consultation for chest pain. Patient examined at the bedside. Patient states he has having pain a few days ago in the middle of his chest so he called EMS. He denies any chest pain or pressure at the time of examination. The patient states his defibrillator did go off a few weeks ago when he was started on amiodarone by his primary hadoop application developer. No significant arrhythmias noted on telemetry. Patient's troponins are negative 3. REVIEW OF SYSTEMS: At the time of my exam: CONSTITUTIONAL: Denies fever or chills. HEENT: Denies blurred vision, vision changes, or eye pain. Denies hemoptysis CARDIOVASCULAR: Denies chest pain. Denies orthopnea. Denies PND. Denies palpitations RESPIRATORY: Denies shortness of breath. GASTROINTESTINAL: Denies abdominal pain. Denies nausea or vomiting. HEMATOLOGIC: Denies bleeding disorders. GENITOURINARY: Denies any blood in urine. SKIN: Denies pruitis. Denies rash. PHYSICAL EXAM: VITAL SIGNS: Reviewed. GENERAL: Well-developed in no acute distress. HEENT: Head is normocephalic. Pupils are equal, round. Sclerae anicteric. Mucous membranes of the mouth are moist. Neck supple. No JVD or thyromegaly LUNGS: Respirations even and unlabored. Lungs essentially clear to auscultation bilaterally. HEART: Regular rate and rhythm. S1 and S2 heard. ABDOMEN: Soft. Nondistended. Nontender. EXTREMITIES: Normal range of motion. No clubbing or cyanosis. Peripheral pulse s intact. No lower extremity edema NEUROLOGIC: Awake and alert. Oriented x 3. ASSESSMENT: Chest pain, troponins negative 3 Nonischemic cardiomyopathy History of AICD implantation History of ventricular fibrillation History of recent AICD discharge per patient, started on amiodarone per his primary hadoop application developer Chronic kidney disease Status post kidney transplant in 2010 Hypertension Hyperlipidemia History of DVT History of CVA PLAN: Patient examined this morning by Dr. Suresh. An acute coronary event has been ruled out. Patient is cleared for discharge from a cardiac standpoint. Patient instructed to follow up with his primary hadoop application developer. Nurse practitioner note has been reviewed by physician. Signing provider agrees with the documented findings, assessment, and plan of care. Past Medical History Past Medical History: Heart Failure, CVA/TIA, Deep Vein Thrombosis (DVT), H ypertension, Renal Disease Last Myocardial Infarction Date:: 2017 History of Any Multi-Drug Resistant Organisms: None Reported Past Surgical History: AICD, Heart Catheterization Additional Past Surgical History / Comment(s): renal transplant 2010 [facility], ablation of heart february 2023 Past Anesthesia/Blood Transfusion Reactions: No Reported Reaction Type of Cardiac Device: AICD Device Placement Date:: 08/25/2020 Past Psychological History: No Psychological Hx Reported Smoking Status: Never smoker Past Alcohol Use History: None Reported Past Drug Use History: None Reported - Past Family History Father History Unknown: Yes Family Medical History: Congestive Heart Failure (CHF) Medications and Allergies Home Medications Medication Instructions Recorded Confirmed Type Atorvastatin [Lipitor] 40 mg PO DAILY@0900 09/05/20 05/17/23 History Furosemide [Lasix] 40 mg PO DAILY PRN 09/05/20 05/17/23 History Mycophenolate Sodium [Mycophenolic 720 mg PO BID@0900,209909/05/20 05/17/23 Hi story Acid] Sirolimus [Rapamune] 0.5 mg PO DAILY@0730 09/05/20 05/17/23 History valACYclovir HCL [Valtrex] 1,000 mg PO DAILY@0909/05/20 05/17/23 History Spironolactone [Aldactone] 25 mg PO DIRECTED 12/07/20 05/17/23 History Amiodarone [Cordarone] See Taper PO DIRECTED 05/17/23 05/17/23 History Apixaban [Eliquis] 5 mg PO BID@0730,17305/17/23 05/17/23 History Dapagliflozin Propanediol [Farxiga] 10 mg PO DAILY@17305/17/23 05/17/23 History Losartan [Cozaar] 25 mg PO DAILY@0905/17/23 05/17/23 History Metoprolol Succinate (ER) [Toprol 100 mg PO DAILY@0730 05/17/23 05/17/23 History XL] Metoprolol Succinate (ER) [Toprol 50 mg PO HS@2100 05/17/23 05/17/23 History Xl] Omeprazole 40 mg PO DAILY PRN 05/17/23 05/17/23 History Allergies Allergy/AdvReac Type Severity Reaction Status Date / Time bee venom protein (honey bee) Allergy Swelling Verified 05/17/23 22:11 cephalexin [From Keflex] Allergy Unknown Verified 05/17/23 22:11 Childhood lisinopril Allergy Swelling Verified 05/17/23 22:11 tacrolimus [From Prograf] Allergy Unknown Verified 05/17/23 22:11 Physical Exam Vitals: Vital Signs Temp Pulse Pulse Pulse Resp BP BP 05/20/23 07:39 97.8 F 61 14 108/68 05/20/23 02:00 97.9 F 56 L 15 05/19/23 18:58 98.0 F 65 15 05/19/23 14:10 97.9 F 66 16 05/19/23 13:53 60 18 116/78 05/19/23 12:02 62 16 118/83 BP Pulse Ox 05/20/23 07:39 98 05/20/23 02:00 98/62 97 05/19/23 18:58 99/66 96 05/19/23 14:10 111/75 98 05/19/23 13:53 97 05/19/23 12:02 97 Intake and Output 05/19/23 05/20/23 05/20/23 22:59 06:59 14:59 Other: # Voids 2 1 Results 05/17/23 22:17 05/17/23 22:17 Cardiac Enzymes 05/19/23 Range/Units 12:44 Troponin I <0.012 (0.000-0.034) ng/mL Lipids 05/17/23 Range/Units 22:17 Triglycerides 67.10 (0.00-149.00) mg/dL Cholesterol 95.00 (0.00-200.00) mg/dL HDL Cholesterol 44.90 (40.00-60.00) mg/dL Cholesterol/HDL Ratio 2.12 Ratio Intake and Output 05/19/23 05/20/23 05/20/23 22:59 06:59 14:59 Other: # Voids 2 1 05/17/23 22:17 05/17/23 22:17
--- NOTE | 2023-05-20 13:18 | P.DS ---
Providers Date of admission: 05/19/23 12:29 Attending physician: Isidoro Keita MD Consults: 05/19/23 12:28 Consult Physician Urgent Consulting Provider: Enrique Marsh Consult Reason/Comments: chest pain Do you want consulting provider notified?: Yes Primary care physician: Physician Nonsta Hospital Course: Patient was cleared by cardiology did not want to wait for attending to D/C and he left AMA. Patient Condition at Discharge: Undetermined Plan - Discharge Summary New Discharge Prescriptions: No Action Mycophenolate Sodium [Mycophenolic Acid] 720 mg PO BID@0900,2100 Sirolimus [Rapamune] 0.5 mg PO DAILY@0730 valACYclovir HCL [Valtrex] 1,000 mg PO DAILY@0900 Furosemide [Lasix] 40 mg PO DAILY PRN PRN Reason: Edema Atorvastatin [Lipitor] 40 mg PO DAILY@0900 Metoprolol Succinate (ER) [Toprol Xl] 50 mg PO HS@2100 Metoprolol Succinate (ER) [Toprol XL] 100 mg PO DAILY@0730 Spironolactone [Aldactone] 25 mg PO DIRECTED Losartan [Cozaar] 25 mg PO DAILY@0900 Dapagliflozin Propanediol [Farxiga] 10 mg PO DAILY@1730 Apixaban [Eliquis] 5 mg PO BID@0730,1730 Amiodarone [Cordarone] See Taper PO DIRECTED Omeprazole 40 mg PO DAILY PRN PRN Reason: acid reflux Discharge Medication List Atorvastatin [Lipitor] 40 mg PO DAILY@0900 09/05/20 [History] Furosemide [Lasix] 40 mg PO DAILY PRN 09/05/20 [History] Mycophenolate Sodium [Mycophenolic Acid] 720 mg PO BID@0900,2100 09/05/20 [History] Sirolimus [Rapamune] 0.5 mg PO DAILY@0730 09/05/20 [History] valACYclovir HCL [Valtrex] 1,000 mg PO DAILY@0900 09/05/20 [History] Spironolactone [Aldactone] 25 mg PO DIRECTED 12/07/20 [History] Amiodarone [Cordarone] See Taper PO DIRECTED 05/17/23 [History] Apixaban [Eliquis] 5 mg PO BID@0730,1730 05/17/23 [History] Dapagliflozin Propanediol [Farxiga] 10 mg PO DAILY@1730 05/17/23 [History] Losartan [Cozaar] 25 mg PO DAILY@0905/17/23 [History] Metoprolol Succinate (ER) [Toprol XL] 100 mg PO DAILY@0705/17/23 [History] Metoprolol Succinate (ER) [Toprol Xl] 50 mg PO HS@2100 05/17/23 [History] Omeprazole 40 mg PO DAILY PRN 05/17/23 [History] Follow up Appointment(s)/Referral(s): Nonstaff,Physician [Primary Care Provider] - 1-2 days Discharge Disposition: LEFT AGAINST MEDICAL ADVICE
== END 2023-05-20 09:45 | disposition left against medical advice (07) | DRG 292 ==
LOC: EC 22:05 → 3SCARD 05-19 12:29 → 6NMEDSUR 05-19 13:30
PROVIDERS: ADMIT Internal Medicine; ATTEND Internal Medicine
DX: I13.0 Hypertensive heart and chronic kidney disease with heart failure and stage 1 through stage 4 chronic kidney disease, or unspecified chronic kidney disease (principal); Z94.0 Kidney transplant status; Z20.822 Contact with and (suspected) exposure to COVID-19; I42.0 Dilated cardiomyopathy; E78.5 Hyperlipidemia, unspecified; I25.2 Old myocardial infarction; I48.91 Unspecified atrial fibrillation; Z53.29 Procedure and treatment not carried out because of patient's decision for other reasons; I50.9 Heart failure, unspecified; N18.9 Chronic kidney disease, unspecified; Z79.01 Long term (current) use of anticoagulants; Z79.84 Long term (current) use of oral hypoglycemic drugs; Z79.899 Other long term (current) drug therapy; Z82.49 Family history of ischemic heart disease and other diseases of the circulatory system; Z86.718 Personal history of other venous thrombosis and embolism; Z86.73 Personal history of transient ischemic attack (TIA), and cerebral infarction without residual deficits; Z86.79 Personal history of other diseases of the circulatory system; Z95.810 Presence of automatic (implantable) cardiac defibrillator; Z88.8 Allergy status to other drugs, medicaments and biological substances; Z91.030 Bee allergy status
CPT/HCPCS: 36415; 71045; 80053; 80061; 83735; 83880; 84100; 84484; 85025; 85610; 85730; 87635; 93005; 96374; 96375; 99285